=== PATIENT | female | born 1980 | race Caucasian/White ===

== ENCOUNTER 2017-10-26 18:47 | Emergency (ER) | payer OTHER ==
[2017-10-26 20:07] LABS: Protime INR 1.04
[2017-10-26 20:08] LABS: Absolute Lymphocytes (CBC) 2.4 K/uL (0.7-4.9); Absolute Monocytes 0.6 K/uL (0.1-1.3); Absolute Neutrophil 5.2 K/uL (1.8-8.0); Basophils % 0.7 % (0-1.3); Eosinophils % 7.5 % (0-4.4); Hematocrit 40.6 % (36.0-45.0); Lymphocytes % 26.9 % (15.3-44.8); MCH 30.8 pg (27.0-35.0); MCV 90.8 fL (80-100); MPV 7.9 fL (7.6-11.3); Monocytes % 6.6 % (3.3-12.3); RBC Red Blood Cell Count 4.47 M/uL (3.86-4.86)
[2017-10-26 20:09] LABS: Bicarbonate 29 mEq/L (21-31); Glucose Level 137 mg/dL (65-120); Potassium 3.4 mEq/L (3.6-5.0); Sodium Level 139 mEq/L (135-145)
[2017-10-26 20:15] LABS: ALT/SGPT 13 IU/L (10-60); AST/SGOT 21 IU/L (10-42); Albumin 4.4 g/dL (3.2-5.5); Alkaline Phosphatase 80 IU/L (42-121); BUN Blood Urea Nitrogen 7 mg/dL (6-20); Bilirubin Direct < 0.1 mg/dL (0-0.2); Bilirubin Total 0.6 mg/dL (0.3-1.2); Glomerular Filtration Rate > 90 mL/min (=/>90); Protein, Total 7.5 g/dL (6.0-8.3)
[2017-10-26 20:18] LABS: Alcohol Serum/Plasma < 10 mg/dl; Salicylates Level < 4.0 mg/dl (<30)
[2017-10-26 20:23] LABS: Barbiturates NEGATIVE; Benzodiazepines POSITIVE; Cocaine NEGATIVE; Opiates NEGATIVE; Phencyclidine NEGATIVE; THC Cannibis NEGATIVE
[2017-10-26 20:30] LABS: METHAMPHETAM POSITIVE
[2017-10-26 20:36] LABS: Urine Blood NEGATIVE (NEG); Urine Glucose NEGATIVE (NEG); Urine Protein NEGATIVE (NEG); Urine pH 5.5 (5.0-7.0)
[2017-10-26] MEDS ORDERED: POTASSIUM 25 MEQ EFFERV TAB ONE (21:17)
--- NOTE | 2017-10-27 02:17 | EDPHYS ---
Physician Documentation [facility] Name: Lorene Singer Age: 37 yrs Sex: Female : 1980 Arrival Date: 10/26/2017 Time: 18:51 Bed 17 Private MD: ED Physician Alex Peralta HPI: 10/26 19:30 This 37 yrs old Female presents to ER via Ambulatory with complaints of Psych cp Problem, Anxiety. 19:30 The patient presents to the emergency department with psychosis, has experienced cp auditory hallucinations, patient reports she is hearing "whispers" that pinch her and then ask her if she can feel the pinches. Whispers also ask patient if she is ready to , a history of substance abuse, Type: methamphetamines, last use was 4 days ago. 19:30 Onset: The symptoms/episode began/occurred at an unknown time. Past psychiatric cp history: the patient's last psychiatric treatment was last week, Mother reports patient was hospitalized at [facility] for 1 day prior to checking herself out of hospital. Mother reports patient was prescribed Effexor medication. YOLK SPRAY DRIER: 22:35 LMP N/A - wh Historical: - Allergies: 19:11 Morphine; ak1 - Home Meds: 19:11 None [Active]; ak1 - PMHx: 19:11 Anxiety; ADD/ADHD; ak1 - PSHx: 19:11 None; ak1 - Immunization history:: Adult Immunizations unknown. - Social history:: Smoking status: Patient uses tobacco products, smokes two packs cigarettes per day. ROS: 19:35 Constitutional: Negative for body aches, chills, fever, poor PO intake. cp 19:35 Eyes: Negative for injury, pain, redness, and discharge. cp 19:35 ENT: Negative for drainage from ear(s), ear pain, sore throat, difficulty swallowing, difficulty handling secretions. 19:35 Cardiovascular: Negative for chest pain, edema, palpitations. 19:35 Respiratory: Negative for cough, shortness of breath, wheezing. 19:35 Abdomen/GI: Negative for abdominal pain, nausea, vomiting, and diarrhea, constipation. 19:35 : Negative for urinary symptoms. 19:35 Skin: Negative for cellulitis, rash. 19:35 Neuro: Negative for headache, seizure activity, syncope, near syncope, weakness. 19:35 Psych: Positive for auditory hallucinations. 19:35 All other systems are negative. Exam: 19:42 Constitutional: The patient appears in no acute distress, alert, awake, cp non-diaphoretic, non-toxic, well developed, well nourished. 19:42 Head/Face: Normocephalic, atraumatic. Eyes: Pupils equal round and reactive to light, cp extra-ocular motions intact. Lids and lashes normal. Conjunctiva and sclera are non-icteric and not injected. Cornea within normal limits. Periorbital areas with no swelling, redness, or edema. ENT: Nares patent. No nasal discharge, no septal abnormalities noted. Tympanic membranes are normal and external auditory canals are clear. Oropharynx with no redness, swelling, or masses, exudates, or evidence of obstruction, uvula midline. Mucous membranes moist. Neck: Trachea midline, no thyromegaly or masses palpated, and no cervical lymphadenopathy. Supple, full range of motion without nuchal rigidity, or vertebral point tenderness. No Meningismus. Chest/axilla: Normal chest wall appearance and motion. Nontender with no deformity. No lesions are appreciated. 19:42 Cardiovascular: Rate: tachycardic, Rhythm: regular. 19:42 Respiratory: the patient does not display signs of respiratory distress, Respirations: normal, no use of accessory muscles, no retractions, no splinting, no tachypnea, labored breathing, is not present, Breath sounds: are clear throughout, no decreased breath sounds, no stridor, no wheezing. 19:42 Abdomen/GI: Inspection: abdomen appears normal, Bowel sounds: active, all quadrants, Palpation: abdomen is soft and non-tender, in all quadrants, rebound tenderness, is not appreciated, voluntary guarding, is not appreciated, involuntary guarding, is not appreciated. 19:42 Back: pain, is absent, ROM is normal, CVA tenderness, is absent. 19:42 Skin: cellulitis, is not appreciated, no rash present. 19:42 Neuro: Orientation: to person, place \\T\\ time. Mentation: lucid, able to follow commands, Cerebellar function: is grossly normal, Motor: moves all fours, strength is normal, Sensation: no obvious gross deficits. 19:50 ECG was reviewed by the Attending Physician. cp Vital Signs: 19:11 BP 165 / 89; Pulse 111; Resp 22; Temp 98.4(TE); Pulse Ox 100% on R/A; Weight 77.11 kg ak1 (R); Height 5 ft. 4 in. (162.56 cm); Pain 0/10; 20:29 BP 116 / 61; Pulse 86; Pulse Ox 100% on R/A; jb5 21:30 BP 105 / 46; Pulse 87; Resp 18; Pulse Ox 100% on R/A; wh 22:37 BP 113 / 54; Pulse 86; Resp 18; Pulse Ox 98% on R/A; wh 23:55 BP 99 / 49; Pulse 84; Resp 17; Pulse Ox 97% on R/A; wh 10/27 00:58 BP 100 / 56; Pulse 82; Resp 18; Pulse Ox 100% on R/A; wh 02:15 BP 102 / 50; Pulse 79; Resp 18; Pulse Ox 97% on R/A; wh 03:33 BP 100 / 51; Pulse 77; Resp 18; Pulse Ox 98% on R/A; wh 04:20 BP 103 / 51; Pulse 81; Resp 18; Pulse Ox 98% on R/A; wh 05:15 BP 100 / 53; Pulse 87; Resp 18; Pulse Ox 100% on R/A; wh 07:03 BP 92 / 56; wh 07:30 BP 110 / 76; Pulse 67; Resp 20; Pulse Ox 99% on R/A; em 09:50 BP 131 / 69; Pulse 77; Resp 18; Pulse Ox 99% on R/A; Pain 0/10; em 03 19:11 Body Mass Index 29.18 (77.11 kg, 162.56 cm) ak1 MDM: 10/26 19:11 Patient medically screened. cp 20:00 Differential diagnosis: drug withdrawal. acute psychotic break, psychosis secondary to cp non-compliance, suicidal ideation. 20:35 Data reviewed: vital signs, nurses notes, lab test result(s), EKG. cp 10/27 09:23 ED course: Dr. Hodgson consulted and accepted patient at [facility] . jr8 10/26 19:28 Order name: Acetaminophen cp 10/26 19:28 Order name: Basic Metabolic Panel cp 10/26 19:28 Order name: CBC with Diff cp 10/26 19:28 Order name: ETOH Level cp 10/26 19:28 Order name: Hepatic Function cp 10/26 19:28 Order name: PT-INR cp 10/26 19:28 Order name: Ptt, Activated cp 10/26 19:28 Order name: Salicylate cp 10/26 19:28 Order name: Urine Drug Screen cp 10/26 20:09 Order name: Basic Metabolic Panel; Complete Time: 20:30 EDMS 10/26 20:30 Interpretation: Normal except: K 3.4; GLUC 137. cp 10/26 20:09 Order name: Protime (+INR); Complete Time: 20:30 EDMS 10/26 20:09 Order name: PTT, Activated Partial Thromb; Complete Time: 20:30 EDMS 10/26 20:19 Order name: Liver (Hepatic) Function; Complete Time: 20:30 EDMS 10/26 20:19 Order name: Acetaminophen Level; Complete Time: 20:30 EDMS 10/26 19:28 Order name: Urine Test (obtain specimen); Complete Time: 20:57 cp 10/26 19:28 Order name: EKG; Complete Time: 19:29 cp 10/26 19:28 Order name: EKG - Nurse/Tech; Complete Time: 19:46 cp 10/26 19:28 Order name: IV Saline Lock; Complete Time: 19:46 cp 10/26 19:28 Order name: Labs collected and sent; Complete Time: 19:46 cp 10/26 20:19 Order name: Alcohol Serum/Plasma; Complete Time: 20:30 EDMS 10/26 20:19 Order name: Salicylates Level; Complete Time: 20:30 EDMS 10/26 20:25 Order name: CBC with Automated Diff; Complete Time: 20:30 EDMS 10/26 20:30 Interpretation: Normal except: EOSINOPHIL % 7.5; EOSA 0.7. cp 10/26 20:30 Order name: Urine Dipstick--Ancillary (enter results) rg2 10/26 20:30 Order name: Urine --Ancillary (enter results) rg2 10/26 20:31 Order name: Urine Drug Screen; Complete Time: 20:31 EDMS 10/26 20:37 Order name: Urine --Ancillary; Complete Time: 04:01 EDMS 10/26 20:37 Order name: Urine Dipstick-Ancillary; Complete Time: 04:01 EDMS 10/27 07:07 Order name: Diet Regular; Complete Time: 07:08 10/26 19:28 Order name: Urine Dipstick-Ancillary (obtain specimen); Complete Time: 20:56 cp EC/15 19:50 Rate is 105 beats/min. Rhythm is regular. NV interval is normal. QRS interval is cp normal. QT interval is normal. No ST changes noted. Interpreted by me. Reviewed by me. Administered Medications: 21:00 Drug: Potassium Effervescent Tablet 25 mEq Route: PO; 21:49 Follow up: Response: No adverse reaction 10/27 00:57 Follow up: Response: No adverse reaction 10:20 Drug: XANax Tablet 0.5 mg Route: PO; 10:36 Follow up: Response: No adverse reaction Disposition: 10/27/17 02:16 Transfer ordered to Psych Facility. Diagnosis is Hallucinations, unspecified. - Reason for transfer: Higher level of care. - Accepting physician is psych facility. - Condition is Stable. - Problem is new. - Symptoms are unchanged. Addendum: 11/07/2017 11:25 Co-signature as Attending Physician, Alex Peralta MD available for consultation at p s1 all times. . Signatures: Dispatcher [employer] EDConstantino Chambers, PATTERN MAKER PATTERN MAKER Padmini Ruffin RN RN ss Roszak, Josh, PA PA jr8 Krenek, Amber, RN RN ak1 Phong Boston PA PA cp Habalo, Winsy wh Singer, Phillip, MD MD ps1 Joaquin, Henry RN Corrections: (The following items were deleted from the chart) 10/26 20:30 20:30 Normal except: EOSINOPHIL % 7.5. cp cp
--- NOTE | 2017-10-27 02:17 | ER ---
Nurse's Notes [facility] Name: Lorene Singer Age: 37 yrs Sex: Female : 1980 Arrival Date: 10/26/2017 Time: 18:51 Bed 17 Private MD: Diagnosis: Hallucinations, unspecified Presentation: 10/26 19:08 Presenting complaint: Patient states: "someone put black magic on me" pt stated she is ak1 hearing voices. pt stated the voices have been around X2 months DOME[employer]. pt taking Effexor and Risperdal. pt is out of effexor for 2 days and threw out the risperdal. Transition of care: patient was not received from another setting of care. Onset of symptoms is unknown. Care prior to arrival: None. 19:08 Method Of Arrival: Ambulatory ak1 19:08 Acuity: JAMSHID 2 ak1 Triage Assessment: 19:11 General: Appears in no apparent distress. pt denies SI or homicidal ideations. . ak1 Behavior is anxious, crying. MANAGER GAMING: 22:35 LMP N/A - wh Historical: - Allergies: 19:11 Morphine; ak1 - Home Meds: 19:11 None [Active]; ak1 - PMHx: 19:11 Anxiety; ADD/ADHD; ak1 - PSHx: 19:11 None; ak1 - Immunization history:: Adult Immunizations unknown. - Social history:: Smoking status: Patient uses tobacco products, smokes two packs cigarettes per day. Screenin:48 Abuse screen: Denies threats or abuse. Denies injuries from another. Nutritional wh screening: No deficits noted. Tuberculosis screening: No symptoms or risk factors identified. Fall Risk None identified. Assessment: 20:10 General: Appears in no apparent distress. Behavior is cooperative, anxious. Pain: wh Denies pain. Neuro: Level of Consciousness is awake, alert, obeys commands, Oriented to person, place, time, Reports auditory hallucinations. Cardiovascular: Denies chest pain, Heart tones S1 S2 Capillary refill < 3 seconds. Respiratory: Airway is patent Respiratory effort is even, unlabored, Respiratory pattern is regular, symmetrical, Breath sounds are clear bilaterally. GI: Abdomen is flat, non-distended, Abd is soft and non tender X 4 quads. : No signs and/or symptoms were reported regarding the genitourinary system. EENT: No signs and/or symptoms were reported regarding the EENT system. Derm: Skin is intact, is healthy with good turgor, Skin is pink, warm \\T\\ dry. normal. Musculoskeletal: Range of motion: intact in all extremities. 21:19 Reassessment: Patient appears in no apparent distress at this time. Patient and/or wh family updated on plan of care and expected duration. Pain level reassessed. Patient is alert, oriented x 3, equal unlabored respirations, skin warm/dry/pink. MOther at bedside. 22:32 Reassessment: Patient appears in no apparent distress at this time. Patient and/or wh family updated on plan of care and expected duration. Pain level reassessed. Patient is alert, oriented x 3, equal unlabored respirations, skin warm/dry/pink. Mother at bedside. 23:55 Reassessment: Patient appears in no apparent distress at this time. Patient and/or wh family updated on plan of care and expected duration. Pain level reassessed. Patient is alert, oriented x 3, equal unlabored respirations, skin warm/dry/pink. MOther at bedside. 10/27 00:58 Reassessment: Patient appears in no apparent distress at this time. Patient and/or wh family updated on plan of care and expected duration. Pain level reassessed. Patient is alert, oriented x 3, equal unlabored respirations, skin warm/dry/pink. 02:13 Reassessment: Patient appears in no apparent distress at this time. Patient and/or wh family updated on plan of care and expected duration. Pain level reassessed. Patient is alert, oriented x 3, equal unlabored respirations, skin warm/dry/pink. MOther at bedside. 03:30 Reassessment: Patient appears in no apparent distress at this time. Patient and/or wh family updated on plan of care and expected duration. Pain level reassessed. Patient is alert, oriented x 3, equal unlabored respirations, skin warm/dry/pink. mother in room. 04:18 Reassessment: Patient appears in no apparent distress at this time. Patient and/or wh family updated on plan of care and expected duration. Pain level reassessed. Patient is alert, oriented x 3, equal unlabored respirations, skin warm/dry/pink. 05:16 Reassessment: Patient appears in no apparent distress at this time. Patient and/or wh family updated on plan of care and expected duration. Pain level reassessed. Patient is alert, oriented x 3, equal unlabored respirations, skin warm/dry/pink. 06:57 Reassessment: Patient appears in no apparent distress at this time. Patient and/or wh family updated on plan of care and expected duration. Pain level reassessed. Patient is alert, oriented x 3, equal unlabored respirations, skin warm/dry/pink. 07:28 Reassessment: Psych facility RN Samanta called, RN gave report, left a number for MD to hj report, receiving Dr. Rema YOON, [phone]. 09:40 Reassessment: pt became upset and wanted IV out because it hurts. IV D/C, bleeding em controlled. States, "No one has done anything for me, I want to talk to the preacher so they can get this black magic off me. I also want to smoke." Pt taken outside to smoke with chemical laboratory technician. Pt cooperative and calm. EMS en route to filler picker pt and take to a psych facility. URBANO Dozier notified of upset pt, does not recommend to medicate pt prior to arriving to another facility. [facility] notified of situation and will come see pt after he is done seeing another pt in ICU. 10:10 Reassessment: Patient appears in no apparent distress at this time. Patient and/or em family updated on plan of care and expected duration. Pain level reassessed. Patient is alert, oriented x 3, equal unlabored respirations, skin warm/dry/pink. [facility] at bedside. Psych: 10/26 20:35 Subjective: Patient's mood is sad, angry, Hallucinations are auditory. Objective: wh Patient is cooperative, Speech is normal, Affect is appropriate. Interventions: Removed personal items and placed in bag. Urine collected and sent for urine drug test. Belonging list filled out. Suicide Risk Assessment: Sad Person Scale: Sex of patient: Female: Score 0 points. Age of patient: Score 0 point if patient falls outside of specified age parameters. Substance Abuse: Score 1 point if patient abuses alcohol or drugs. Social Support: Score 0 if social support is present/available. Safety Checks: Personal items have been removed. Door is open. Visitors are present. Patient uses methamphetamines Patient uses tobacco. Commitment: Patient will be a voluntary commitment. 21:00 Safety Checks: Personal items have been removed. Door is open. Visitors are present. 21:15 Safety Checks: Personal items have been removed. Door is open. Visitors are present. 21:30 Safety Checks: Personal items have been removed. Door is open. Visitors are present. 21:45 Safety Checks: Personal items have been removed. Door is open. Visitors are present. 22:00 Safety Checks: Personal items have been removed. Door is open. No visitors are present at this time. 22:15 Safety Checks: Personal items have been removed. Door is open. Visitors are present. 22:30 Safety Checks: Personal items have been removed. Door is open. Visitors are present. 22:45 Safety Checks: Personal items have been removed. Door is open. Visitors are present. 23:00 Safety Checks: Personal items have been removed. Door is open. Visitors are present. 23:15 Safety Checks: Personal items have been removed. Door is open. Visitors are present. 23:30 Safety Checks: Personal items have been removed. Door is open. Visitors are present. 23:45 Safety Checks: Personal items have been removed. Door is open. Visitors are present. 10/27 00:00 Safety Checks: Personal items have been removed. Door is open. Visitors are present. 00:15 Safety Checks: Personal items have been removed. Door is open. Visitors are present. 00:30 Safety Checks: Personal items have been removed. Door is open. Visitors are present. 00:45 Safety Checks: Personal items have been removed. Door is open. Visitors are present. 01:00 Safety Checks: Personal items have been removed. Door is open. Visitors are present. 01:15 Safety Checks: Personal items have been removed. Door is open. Visitors are present. 01:30 Safety Checks: Personal items have been removed. Door is open. Visitors are present. 01:45 Safety Checks: Personal items have been removed. Door is open. Visitors are present. 02:00 Safety Checks: Personal items have been removed. Door is open. Visitors are present. 02:14 Safety Checks: Personal items have been removed. Door is open. Visitors are present. wh 02:30 Safety Checks: Door is open. No visitors are present at this time. wh 02:45 Safety Checks: Personal items have been removed. Door is open. No visitors are present wh at this time. 03:00 Safety Checks: Personal items have been removed. Door is open. No visitors are present wh at this time. 03:15 Safety Checks: Personal items have been removed. Door is open. No visitors are present wh at this time. 03:30 Safety Checks: Personal items have been removed. Door is open. No visitors are present wh at this time. 03:45 Safety Checks: Personal items have been removed. Door is open. Visitors are present. wh 04:00 Safety Checks: Personal items have been removed. Door is open. Visitors are present. wh 04:15 Safety Checks: Personal items have been removed. Door is open. Visitors are present. wh 04:30 Safety Checks: Personal items have been removed. Door is open. No visitors are present wh at this time. 04:45 Safety Checks: Personal items have been removed. Door is open. No visitors are present wh at this time. 05:00 Safety Checks: Personal items have been removed. Door is open. No visitors are present wh at this time. 05:15 Safety Checks: Personal items have been removed. Door is open. No visitors are present wh at this time. 05:30 Safety Checks: Personal items have been removed. Door is open. No visitors are present wh at this time. 05:45 Safety Checks: Personal items have been removed. Door is open. No visitors are present wh at this time. 06:00 Safety Checks: Personal items have been removed. Door is open. No visitors are present wh at this time. 06:15 Safety Checks: Personal items have been removed. Door is open. No visitors are present wh at this time. 06:30 Safety Checks: Personal items have been removed. Door is open. No visitors are present wh at this time. 06:45 Safety Checks: Personal items have been removed. Door is closed to patient's room. wh Visitors are present. 07:00 Safety Checks: Personal items have been removed. Door is open. No visitors are present wh at this time. 07:15 Safety Checks: Personal items have been removed. Door is open. No visitors are present at this time. 07:30 Safety Checks: Personal items have been removed. Door is open. No visitors are present em at this time. 07:45 Safety Checks: Personal items have been removed. Door is open. No visitors are present em at this time. 08:00 Safety Checks: Personal items have been removed. Door is open. No visitors are present em at this time. 08:15 Safety Checks: Personal items have been removed. Door is open. No visitors are present em at this time. 08:30 Safety Checks: Personal items have been removed. Door is open. No visitors are present em at this time. 08:45 Safety Checks: Personal items have been removed. Door is open. Visitors are present. em 09:00 Safety Checks: Personal items have been removed. Door is open. Visitors are present. em 09:15 Safety Checks: Personal items have been removed. Door is open. Visitors are present. em Vital Signs: 10/26 19:11 BP 165 / 89; Pulse 111; Resp 22; Temp 98.4(TE); Pulse Ox 100% on R/A; Weight 77.11 kg ak1 (R); Height 5 ft. 4 in. (162.56 cm); Pain 0/10; 20:29 BP 116 / 61; Pulse 86; Pulse Ox 100% on R/A; jb5 21:30 BP 105 / 46; Pulse 87; Resp 18; Pulse Ox 100% on R/A; wh 22:37 BP 113 / 54; Pulse 86; Resp 18; Pulse Ox 98% on R/A; wh 23:55 BP 99 / 49; Pulse 84; Resp 17; Pulse Ox 97% on R/A; wh 03/16 00:58 BP 100 / 56; Pulse 82; Resp 18; Pulse Ox 100% on R/A; wh 02:15 BP 102 / 50; Pulse 79; Resp 18; Pulse Ox 97% on R/A; wh 03:33 BP 100 / 51; Pulse 77; Resp 18; Pulse Ox 98% on R/A; wh 04:20 BP 103 / 51; Pulse 81; Resp 18; Pulse Ox 98% on R/A; wh 05:15 BP 100 / 53; Pulse 87; Resp 18; Pulse Ox 100% on R/A; wh 07:03 BP 92 / 56; wh 07:30 BP 110 / 76; Pulse 67; Resp 20; Pulse Ox 99% on R/A; em 09:50 BP 131 / 69; Pulse 77; Resp 18; Pulse Ox 99% on R/A; Pain 0/10; em 10/26 19:11 Body Mass Index 29.18 (77.11 kg, 162.56 cm) ak1 ED Course: 10/26 18:51 Patient arrived in ED. rg4 19:08 Yung Leija is Primary Nurse. 19:10 Triage completed. ak1 19:10 Phong Boston PA is PHCP. cp 19:10 Alex Peralta MD is Attending Physician. cp 19:11 Arm band placed on Patient placed in an exam room, on a stretcher, Patient notified of ak1 wait time. 19:36 Inserted saline lock: 20 gauge in right antecubital area, using aseptic technique. jb5 Blood collected. 20:45 Patient has correct armband on for positive identification. Bed in low position. Call light in reach. Side rails up X 1. Pulse ox on. NIBP on. 10/27 10:00 No provider procedures requiring assistance completed. IV discontinued, intact, em bleeding controlled, No redness/swelling at site. Pressure dressing applied. Administered Medications: 10/26 21:00 Drug: Potassium Effervescent Tablet 25 mEq Route: PO; 21:49 Follow up: Response: No adverse reaction 10/27 00:57 Follow up: Response: No adverse reaction 10:20 Drug: XANax Tablet 0.5 mg Route: PO; em 10:36 Follow up: Response: No adverse reaction Outcome: 02:16 ER care complete, transfer ordered by MD. cp 10:49 Transferred by ground EMS to other acute care facility, Transfer form completed. em 10:49 Condition: good 10:49 Instructed on the need for transfer, Demonstrated understanding of instructions. 10:53 Patient left the ED. em Signatures: Constantino Back LVN ELECTROCARDIOGRAPHIC TECHNICIAN em Nat Davila RN RN ak1 Dick Gastelum RN RN hj Phong Boston PA PA cp Garcia, Rubi rg4 Faye Cline jb5 Yung Leija Corrections: (The following items were deleted from the chart) 05:15 04:20 BP 69 / 61; Pulse 81bpm; Resp 18bpm; Pulse Ox 98% RA; wh wh 09:56 09:40 Reassessment: pt became upset and wanted IV out because it hurts. States, "No one em has done anything for me, I want to talk to the preacher so they can get this black magic off me. I also want to smoke." Pt taken outside to smoke with chemical laboratory technician. Pt cooperative and calm. EMS en route to filler picker pt and take to a psych facility. [facility] notified of upset pt, does not recommend to medicate pt prior to arriving to another facility. [facility] notified of situation and will come see pt after he is done seeing another pt in ICU. em
--- NOTE | 2017-10-27 07:39 | EKG ---
Test Date: 2017-10-26 Test Time: 19:40:59 Senior Accountant Analyst: FATOU MEASUREMENT RESULTS: Intervals: Rate: 105 IN: 148 QRSD: 80 QT: 348 QTc: 459 [place]: P: 23 IN: 148 QRS: 23 T: 32 INTERPRETIVE STATEMENTS: Sinus tachycardia Septal infarct, age undetermined Abnormal ECG Compared to ECG 05/22/2016 14:16:42 Myocardial infarct finding now present Sinus rhythm no longer present Sinus arrhythmia no longer present Electronically Signed On 10-27-17 07:39:13 CDT by Fernando Wong
[2017-10-27] MEDS ORDERED: ALPRAZOLAM 0.5 MG TABLET ONE (10:41)
[2017-10-27 11:16] VITALS: TEMP 98.4
[2017-10-27 11:29] VITALS: O2SAT 99
[2017-10-27 11:30] VITALS: BP 131/69
== END 2017-10-27 10:53 ==
LOC: ER 18:47
DX: R44.0 Auditory hallucinations (principal); F41.9 Anxiety disorder, unspecified; F90.9 Attention-deficit hyperactivity disorder, unspecified type; F17.210 Nicotine dependence, cigarettes, uncomplicated; Z88.5 Allergy status to narcotic agent
CPT/HCPCS: 36415; 80048; 80076; 80307; 80320; 80329; 81003; 81025; 85025; 85610; 85730; 93005; 99285

== ENCOUNTER 2017-12-19 10:08 | Emergency (ER) | payer OTHER ==
--- OUTSIDE RECORDS SUMMARY | 2017-12-19 10:10 | XMS REPORT ---
:1980 Author Organization [facility] Address [address] [place] [address] Dr. Moore [address] [place] [id number] Care Team Providers Name Role Phone UNKNOWN, REFFERING Primary Care Provider Unavailable DANIEL HUMPHREYS M.D. Unavailable Unavailable Problems This patient has no known problems. Allergies, Adverse Reactions, Alerts This patient has no known allergies or adverse reactions. Medications This patient has no known medications. Results Test Description Test Time Test Comments Text Results Atomic Results Result Comments RPR, Qual 2017-10-11 14:45:00 Test Item Value Reference Range Comments RPR (test code=RPR) Non-Reactive Non-Reactive Thyroid Stimulating Hormone (TSH)2017-10-11 07:29:00 Test Item Value Reference Range Comments TSH (test code=TSH) 2.42 mIU/mL 0.270-4.200 BHCG, Serum, [id number] 07:29:00 Test Item Value Reference Range Comments B hCG, Quant (test <1 mIU/mL Weeks of Gestation Ranges code=BHCGQT) (mIU/mL)3 weeks 5.40 - 72.04 weeks 10.2 - 7085 weeks 217 - 49705 weeks 152 - 766604 weeks 4059 - 0772090 weeks 48517 - 2548304 weeks 84963 - 29091680 weeks 53022 - 75063599 weeks 48738 - 68102317 weeks 51398 - 5429619 weeks 85751 - 6118373 weeks 6204 - 9198249 weeks 40 - 8901114 weeks 0081 - 89461 Lipid [id number] 07:19:00 Test Item Value Reference Range Comments Cholesterol (test 132 mg/dL 0-200 code=CHOL) Triglycerides (test 122 mg/dL 9-200 code=TRIG) HDL (test code=HDL) 21 mg/dL 50-60 Chol/HDL (test 6.3 Ratio 0.0-4.4 code=CHOLPHDL) LDL, Calculated (test 87 0-130 (NOTE)RISK OF HEART code=LDLC) DISEASEPublished by [place] Heart AssociationAnalyte Optimal Boderline Increased RiskCHOL <200 200-239 >240TRIG <150 150-199 >200HDL Male: >60 <40HDL Female: >60 <50LDL <100 130-159 >160LDL NEAR OPTIMAL IS 100-129 VLDL (test code=VLDL) 24 mg/dL 5-40 LDL/HDL (test code=LDLPHDL) 4 [id number] 04:24:00 Test Item Value Reference Range Comments Amphetamine (test code=AMPH) Negative Negative For diagnostic purposes only, positive results should always be assessedin conjunctionwith the patient's medical history,clinical examination and otherfindings.To fulfill legal requirements, a more specific alternate chemical methodmust be used inorder to obtain a Confirmed analytical result. GC/MS is the preferred confirmatory method. Barbiturates (test code=SUPA) Negative Negative Benzodiazepine (test POSITIVE Negative code=BRET) Cocaine (test code=COCA) Negative Negative Methadone (test code=MTHD) Negative Negative Opiates (test code=OPIA) Negative Negative PCP (test code=PCP) Negative Negative Propoxyphene (test Negative Negative code=PROPOX) THC (test code=THC) POSITIVE Negative Urinalysis [id number] 03:47:00 Test Item Value Reference Range Comments Color (test code=COLOR) [place] Yellow,Straw,Pl yellow The value [place] originally released by [email or web address] on 10/11/2017 03:42 waschanged to [place] by [email or web address] on 10/11/2017 03:47 Clarity (test code=CLAR) Sl Cloudy Clear The value Clear originally released by [email or web address] on 10/11/2017 03:42 waschanged to [place] Cloudy by [email or web address] on 10/11/2017 03:47 Specific [place] (test 1.006 1.001-1.035 code=SPGR) pH (test code=PH) 6.5 5.0-9.0 Ketone (test code=KET) Negative mg/dL Negative Glucose (test Negative mg/dL Negative code=GLUCUR) Protein (test code=PROT) Negative mg/dL Negative Bilirubin (test Negative mg/dL Negative code=BILI) Occult Blood (test Large Negative code=UDOB) Urobilinogen (test 0.2 mg/dL 0.2-1.0 code=UROB) Nitrite (test code=NIT) Negative Negative Leuk Esterase (test Small Negative code=LEUK) Micros Exam (test Indicated code=MEXAM) Epithelial Cells (test None /LPF 0-30 code=EPI) WBC, Urine (test 0-2 /HPF 0-5 code=UWBC) RBC, Urine (test 51-100 /HPF 0-5 code=URBC) Bacteria (test code=BACT) Few /HPF Comprehensive Metabolic [id number] 01:00:00 Test Item Value Reference Range Comments Sodium (test code=NA) 139 mmol/L 135-145 Potassium (test code=K) 3.4 mmol/L 3.5-5.1 Chloride (test code=CL) 101 mmol/L 98-105 Carbon Dioxide (test 28 mmol/L 22-29 code=CO2) Glucose (test code=GLU) 102 mg/dL 70-115 Blood Urea Nitrogen 6 mg/dL 6-20 (test code=BUN) Creatinine (test 0.7 mg/dL 0.5-0.9 code=CREAT) Calcium (test code=CA) 9.4 mg/dL 8.3-10.5 Prot Total (test 6.6 g/dL 6.4-8.3 code=TP) Albumin (test code=ALB) 4.3 g/dL 3.5-5.2 A/G Ratio (test 1.9 Ratio code=AGRATIO) Globulin (test 2.3 2.9-3.1 code=GLOB) Bili Total (test <0.1 mg/dL 0.1-0.9 code=TBIL) Alk Phos (test 84 U/L 35-104 code=APHOS) AST (test code=AST) 16 U/L 1-32 ALT (test code=ALT) 11 U/L 1-33 BUN/Creatinine Ratio 8.6 (test code=BCRATIO) Anion Gap (test 10 mmol/L 7-16 code=AGAP) Estimated GFR (test >60 mL/min/1.73m2 eGFR (estimated Glomerular code=GFR) Filtration Rate) is an estimated value,calculated from the patient's serum creatinine using the MDRD equation.It is NOT the patient's actual GFR. The eGFR provides a more clinicallyuseful measure of kidney disease than serum creatinine alone.This calculation takes sex and race into account, if the informationis provided. If the race is not provided, and the patient isAfrican-Z[place]ian, multiply by 1.212. If sex is not provided, and thepatient is female, multiply by 0.742. Results for patients <18 years ofage have not been validated by the MDRD study and should be interpretedwith caution.eGFR Result Interpretation:eGFR > or=60 is in the Normal RangeeGFR < 60 may mean kidney diseaseeGFR < 15 may mean kidney failureRanges recommended by the National Kidney Foundation,http://nkdep.nih .gov Alcohol/Ethanol, [id number] 01:00:00 Test Item Value Reference Range Comments Alcohol, Ethyl (test <0.01 g/dL 0.00-0.01 Intoxicated 0.080 g/dL or code=ETOH) more CBC with [id number] 00:45:00 Test Item Value Reference Range Comments WBC (test code=WBC) 12.0 K/cumm 4.4-10.5 RBC (test code=RBC) 4.09 M/cumm 3.75-5.20 Hemoglobin (test code=HGB) 12.4 gm/dL 12.2-14.8 Hematocrit (test code=HCT) 38.3 % 36.5-44.4 MCV (test code=MCV) 93.8 fL 80-100 MCH (test code=MCH) 30.4 pg 27.0-32.5 MCHC (test code=MCHC) 32.5 g/dL 32.0-37.5 RDW (test code=RDW) 13.4 % 11.5-14.5 Platelet Count (test code=PLTCT) 393 K/cumm 140-440 MPV (test code=MPV) 9.3 fL Diff Method (test code=DIFFM) Auto Neutrophil (test code=NEUT) 53.3 % 36-70 Lymphocyte (test code=LYMPH) 31.8 % 12-44 Monocyte (test code=MONO) 4.1 % 0-11 Eosinophil (test code=EOS) 10.3 % 0-7 Basophil (test code=BASO) 0.5 % 0-2 Neutro Abs (test code=ANEUT) 6.4 K/cumm 1.6-7.4 Lymph Abs (test code=ALYMPH) 3.8 K/cumm 0.5-4.6 [place] Abs (test code=AMONO) 0.5 K/cumm 0.0-1.2 Eos Abs (test code=AEOS) 1.24 K/cumm 0.00-0.74 Baso Abs (test code=ABASO) 0.1 K/cumm 0.00-0.21
--- NOTE | 2017-12-19 10:57 | EDPHYS ---
Physician Documentation [facility] Name: Lorene Singer Age: 37 yrs Sex: Female : 1980 Arrival Date: 12/19/2017 Time: 10:10 Bed 5 Private MD: None, None ED Physician Henrry Whittington HPI: 12/19 10:50 This 37 yrs old Female presents to ER via Ambulatory with complaints of Psych gs Problem. 10:50 The patient presents to the emergency department with depression, paranoia, psychosis, gs has experienced auditory hallucinations. Onset: The symptoms/episode began/occurred 1 month(s) ago. Past psychiatric history: Prior diagnosis: bipolar disorder, depression. Associated signs and symptoms: Pertinent negatives: homicidal ideation, suicide ideation. Severity of symptoms: At their worst the symptoms were moderate in the emergency department the symptoms are unchanged. The patient has experienced similar episodes in the past, chronically. The patient has been recently seen by a physician: psych facility. 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 - Social history:: The patient lives at home, Smoking status: Patient uses tobacco products, smokes one pack cigarettes per day. ROS: 10:50 All other systems are negative. gs Exam: 10:50 Head/Face: Normocephalic, atraumatic. Eyes: Pupils equal round and reactive to light, gs extra-ocular motions intact. Lids and lashes normal. Conjunctiva and sclera are non-icteric and not injected. Cornea within normal limits. Periorbital areas with no swelling, redness, or edema. ENT: Nares patent. No nasal discharge, no septal abnormalities noted. Tympanic membranes are normal and external auditory canals are clear. Oropharynx with no redness, swelling, or masses, exudates, or evidence of obstruction, uvula midline. Mucous membranes moist. Neck: Trachea midline, no thyromegaly or masses palpated, and no cervical lymphadenopathy. Supple, full range of motion without nuchal rigidity, or vertebral point tenderness. No Meningismus. Chest/axilla: Normal chest wall appearance and motion. Nontender with no deformity. No lesions are appreciated. Cardiovascular: Regular rate and rhythm with a normal S1 and S2. No gallops, murmurs, or rubs. Normal PMI, no JVD. No pulse deficits. Respiratory: Lungs have equal breath sounds bilaterally, clear to auscultation and percussion. No rales, rhonchi or wheezes noted. No increased work of breathing, no retractions or nasal flaring. Abdomen/GI: Soft, non-tender, with normal bowel sounds. No distension or tympany. No guarding or rebound. No evidence of tenderness throughout. Back: No spinal tenderness. No costovertebral tenderness. Full range of motion. MS/ Extremity: Pulses equal, no cyanosis. Neurovascular intact. Full, normal range of motion. Neuro: Awake and alert, GCS 15, oriented to person, place, time, and situation. Cranial nerves II-XII grossly intact. Motor strength 5/5 in all extremities. Sensory grossly intact. Cerebellar exam normal. Normal gait. 10:50 Constitutional: The patient appears alert, awake. 10:50 Psych: Behavior/mood is pleasant, Affect is calm, Oriented to person, place, time, Patient has no thoughts/intents to harm self or others. Judgement / Insight is impaired. Delusions/hallucinations are present and described as VOICES TELLING HER TO SAY HER DAUGHTER HAS LEUKEMIA. Vital Signs: 10:25 BP 124 / 79; Pulse 92; Resp 18; Temp 98.4(TE); Pulse Ox 100% on R/A; Weight 65.77 kg; Height 5 ft. 4 in. (162.56 cm); 10:25 Body Mass Index 24.89 (65.77 kg, 162.56 cm) MDM: 10:46 Patient medically screened. 10:50 Data reviewed: vital signs, nurses notes. Physician consultation: Estephania TRAN and will see patient in office, shortly. Administered Medications: No medications were administered Disposition: 12/19/17 10:56 Discharged to Home. Impression: Bipolar disorder, current episode depressed, mild. - Condition is Stable. - Discharge Instructions: Bipolar Disorder. - Prescriptions for Klonopin 1 mg Oral Tablet - take 1 tablet by ORAL route every 12 hours As needed; 10 tablet. - Medication Reconciliation Form, Thank You Letter, Antibiotic Education, Prescription Opioid Use form. - Follow up: Private Physician; When: Today. Signatures: Dick Gastelum RN RN Joleen Roque RN RN tw2 Henrry Whittington MD MD Corrections: (The following items were deleted from the chart) 11:04 10:56 12/19/2017 10:56 Discharged to Home. Impression: Bipolar disorder, current tw2 episode depressed, mild. Condition is Stable. Forms are Medication Reconciliation Form, Thank You Letter, Antibiotic Education, Prescription Opioid Use. Follow up: Private Physician; When: Today. gs 13:06 11:04 12/19/2017 10:56 Discharged to Home. Impression: Bipolar disorder, current episode depressed, mild. Condition is Stable. Discharge Instructions: Bipolar Disorder. Forms are Medication Reconciliation Form, Thank You Letter, Antibiotic Education, Prescription Opioid Use. Follow up: Private Physician; When: Today. tw2
--- NOTE | 2017-12-19 10:57 | ER ---
Nurse's Notes [facility] Name: Lorene Singer Age: 37 yrs Sex: Female : 1980 Arrival Date: 12/19/2017 Time: 10:10 Bed 5 Private MD: None, None Diagnosis: Bipolar disorder, current episode depressed, mild Presentation: 12/19 10:22 Presenting complaint: Patient states: 2 months ago, i started hearing voices and i was hj out of my medication for months and i coudnt get an appointment with my doctor; denies suicidal or homicidal tendencies;. Transition of care: patient was not received from another setting of care. Onset of symptoms was December 19, 2017. Initial Sepsis Screen: Does the patient meet any 2 criteria? No. Patient's initial sepsis screen is negative. Does the patient have a suspected source of infection? No. Patient's initial sepsis screen is negative. Care prior to arrival: None. 10:22 Method Of Arrival: Ambulatory 10:22 Acuity: JAMSHID 2 hj Triage Assessment: 10:24 General: Appears in no apparent distress. uncomfortable, Behavior is calm, cooperative, hj appropriate for age. Pain: Denies pain. 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 - Social history:: The patient lives at home, Smoking status: Patient uses tobacco products, smokes one pack cigarettes per day. Screenin:45 Abuse screen: Denies threats or abuse. Nutritional screening: No deficits noted. tw2 Tuberculosis screening: No symptoms or risk factors identified. Fall Risk None identified. Assessment: 10:45 General: Appears in no apparent distress. Behavior is cooperative. Pain: Denies pain. tw2 Neuro: Level of Consciousness is awake, alert, obeys commands, Oriented to person, place, time, situation. Cardiovascular: Denies chest pain, shortness of breath, Heart tones S1 S2 Capillary refill < 3 seconds. Respiratory: Airway is patent Respiratory effort is even, unlabored, Respiratory pattern is regular, symmetrical, Breath sounds are clear bilaterally. GI: No signs and/or symptoms were reported involving the gastrointestinal system. GI: Abdomen is flat, Bowel sounds present X 4 quads. : No signs and/or symptoms were reported regarding the genitourinary system. EENT: No signs and/or symptoms were reported regarding the EENT system. Derm: No signs and/or symptoms reported regarding the dermatologic system. Skin is intact, is healthy with good turgor, Skin temperature is warm. 11:03 Reassessment: Patient appears in no apparent distress at this time. No changes from tw2 previously documented assessment. Patient and/or family updated on plan of care and expected duration. Pain level reassessed. Patient is alert, oriented x 3, equal unlabored respirations, skin warm/dry/pink. Psych: 10:26 Subjective: Patient's mood is angry, Delusions are denied, Hallucinations are auditory, hj Having thoughts of. Objective: Patient is irritable, Speech is normal, Affect is inappropriate. 10:45 Interventions: pt denies SI or HI. Suicide Risk Assessment: Sad Person Scale: Sex of tw2 patient: Female: Score 0 points. Age of patient: Score 0 point if patient falls outside of specified age parameters. Depression: Score 0 point if signs of depression are not present. Previous Attempt: Score 0 point if patient has not previously attempted suicide. Substance Abuse: Score 0 point if patient does not abuse alcohol or drugs. Rational Thinking: Score 0 point if patient has rational thinking. Social Support: Score 1 point if social support is lacking and/or unavailable. Organized Plan: Score 0 if patient did not have an organized plan in place. Relationship: Score 1 point if patient is , , , or for a single male Chronic Sickness: Score 0 point if patient does not have a chronic illness, debilitating, or severe disorder. TOTAL POINTS: If total points are 0-2, proposed clinical action is to send home with follow-up. Safety Checks: Personal items have not been removed. Door is open. No visitors are present at this time. Pt denies substance abuse. 11:03 Commitment: see notes. tw2 Vital Signs: 10:25 BP 124 / 79; Pulse 92; Resp 18; Temp 98.4(TE); Pulse Ox 100% on R/A; Weight 65.77 kg; hj Height 5 ft. 4 in. (162.56 cm); 10:25 Body Mass Index 24.89 (65.77 kg, 162.56 cm) ED Course: 10:10 Patient arrived in ED. mr 10:10 None, None is Private Physician. mr 10:23 Triage completed. hj 10:26 Arm band placed on left wrist. 10:37 Henrry Whittington MD is Attending Physician. gs 10:40 Bed in low position. Call light in reach. Pulse ox on. NIBP on. tw2 10:45 Joleen Roque, RN is Primary Nurse. tw2 11:03 No provider procedures requiring assistance completed. Patient did not have IV access tw2 during this emergency room visit. Administered Medications: No medications were administered Outcome: 10:56 Discharge ordered by . gs 11:03 Discharged to home ambulatory. tw2 11:03 Condition: stable 11:03 Discharge instructions given to patient, Instructed on discharge instructions, follow up and referral plans. Demonstrated understanding of instructions, follow-up care, to see Dr. Flores/Carri Nash office today for appointment 11:04 Patient left the ED. tw2 13:06 Patient left the ED. Signatures: Shante Porter mr GastelumDick, RN AKASH Joleen Roque RN RN tw2 Henrry Whittington MD MD Corrections: (The following items were deleted from the chart) 10:27 10:25 Pulse 92bpm; Resp 18bpm; Pulse Ox 100% RA; Temp 98.4F Temporal; 65.77 kg; Height hj 5 ft. 4 in.; BMI: 24.8; hj 10:36 10:22 Presenting complaint: Patient states: 2 months ago, i started hearing voices and hj you were out of medication for months; denies suicidal or homicidal tendencies; hj 10:37 10:22 Presenting complaint: Patient states: 2 months ago, i started hearing voices and hj i was out of my medication for months; denies suicidal or homicidal tendencies; hj
[2017-12-19 11:07] VITALS: BP 124/79; TEMP 98.4; O2SAT 100
== END 2017-12-19 13:06 | disposition home or self-care (01) ==
LOC: ER 10:08
DX: F31.9 Bipolar disorder, unspecified (principal); F90.9 Attention-deficit hyperactivity disorder, unspecified type; F41.9 Anxiety disorder, unspecified; F17.210 Nicotine dependence, cigarettes, uncomplicated; Z88.5 Allergy status to narcotic agent
CPT/HCPCS: 99284

== ENCOUNTER 2018-02-16 16:55 | Emergency (ER) | payer OTHER ==
--- OUTSIDE RECORDS SUMMARY | 2018-02-16 16:57 | XMS REPORT ---
:1980 [facility] Address [address] [place] [address] Dr. Moore [address] [place] [id number] Care Team Providers Name Role Phone UNKNOWN, [...] (test code=TSH) 2.42 mIU/mL 0.270-4.200 BHCG, Serum, [id number] 07:29:00 Test Item Value Reference Range Comments B hCG, Quant (test <1 mIU/mL Weeks of Gestation Ranges code=BHCGQT) (mIU/mL)3 weeks 5.40 - 72.04 weeks 10.2 - 7085 weeks 217 - 87782 weeks 152 - 395721 weeks 4059 - 5207730 weeks 98412 - 6992390 weeks 14441 - 78324466 weeks 49386 - 37355150 weeks 92416 - 43383371 weeks 39801 - 9781385 weeks 60369 - 2887256 weeks 7404 - 4317601 weeks 6040 - 9426656 weeks 3497 - 68464 Lipid [id number] 07:19:00 Test Item Value Reference Range Comments Cholesterol (test 132 mg/dL 0-200 code=CHOL) Triglycerides (test 122 mg/dL 9-200 code=TRIG) HDL (test code=HDL) 21 mg/dL 50-60 Chol/HDL (test 6.3 Ratio 0.0-4.4 code=CHOLPHDL) LDL, Calculated (test 87 0-130 (NOTE)RISK OF HEART code=LDLC) DISEASEPublished by [place] Heart AssociationAnalyte Optimal Boderline Increased RiskCHOL <200 200-239 >240TRIG <150 150-199 >200HDL Male: >60 <40HDL Female: >60 <50LDL <100 130-159 >160LDL NEAR OPTIMAL IS 100-129 VLDL (test code=VLDL) 24 mg/dL 5-40 LDL/HDL (test code=LDLPHDL) 4 [id number] 04:24:00 Test Item Value Reference Range Comments [...] code=PROPOX) THC (test code=THC) POSITIVE Negative Urinalysis [id number] 03:47:00 Test Item Value Reference Range Comments Color (test code=COLOR) [place] Yellow,Straw,Pl yellow The value [place] originally released by [employer] on 10/11/2017 03:42 waschanged to [place] by [employer] on 10/11/2017 03:47 Clarity (test code=CLAR) Sl Cloudy Clear The value Clear originally released by [employer] on 10/11/2017 03:42 waschanged to Sl Cloudy by [employer] on 10/11/2017 03:47 Specific [place] (test 1.006 1.001-1.035 code=SPGR) pH (test code=PH) [...] Bacteria (test code=BACT) Few /HPF Comprehensive Metabolic [id number] 01:00:00 Test Item Value Reference Range Comments [...] race is not provided, and the patient isAfrican-Indian, multiply by 1.212. If sex is not provided, and thepatient is female, multiply by 0.742. Results for patients <18 years ofage have not been validated by the MDRD study and should be interpretedwith caution.eGFR Result Interpretation:eGFR > or=60 is in the Normal RangeeGFR < 60 may mean kidney diseaseeGFR < 15 may mean kidney failureRanges recommended by the National Kidney Foundation,http://nkdep.nih .gov Alcohol/Ethanol, [id number] 01:00:00 Test Item Value Reference Range Comments Alcohol, Ethyl (test <0.01 g/dL 0.00-0.01 Intoxicated 0.080 g/dL or code=ETOH) more CBC with [id number] 00:45:00 Test Item Value Reference Range Comments [...] Lymph Abs (test code=ALYMPH) 3.8 K/cumm 0.5-4.6 [place] Abs (test code=AMONO) 0.5 K/cumm 0.0-1.2 Eos Abs (test code=AEOS) 1.24 K/cumm 0.00-0.74 Baso Abs (test code=ABASO) 0.1 K/cumm 0.00-0.21
--- NOTE | 2018-02-16 17:48 | EDPHYS ---
Physician Documentation [facility] Name: Lorene Singer Age: 37 yrs Sex: Female : 1980 Arrival Date: 02/16/2018 Time: 16:58 Bed 17 Private MD: None, None ED Physician Lon Koch HPI: 02/16 17:24 This 37 yrs old Female presents to ER via Ambulatory with complaints of Chest rn Pain, Anxiety. 17:24 The patient or guardian reports chest pain that is located primarily in the chest rn diffusely. The pain does not radiate. Associated signs and symptoms: Pertinent positives: lightheadedness, palpitations, shortness of breath, Pertinent negatives: abdominal pain, cough, lower extremity swelling, syncope, vomiting. The chest pain is described as dull. Duration: The patient or guardian reports multiple episodes, that are intermittent. Modifying factors: The symptoms are alleviated by nothing. the symptoms are aggravated by nothing. The patient has not recently seen a physician. Reports having an anxiety attack, reports has been on klonopin for a long time, recently ran out of [employer], came here because someone wrote for klonopin in past. Reports typical of anxiety attacks in past, + heart racing and sob. . 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 - Social history:: Smoking status: Patient uses tobacco products, smokes one pack cigarettes per day. - Ebola Screening: : Patient negative for fever greater than or equal to 101.5 degrees Fahrenheit, and additional compatible Ebola Virus Disease symptoms Patient denies exposure to infectious person Patient denies travel to an Ebola-affected area in the 21 days before illness onset No symptoms or risks identified at this time. - Family history:: not pertinent. - Hospitalizations: : No recent hospitalization is reported. ROS: 17:24 Constitutional: Negative for fever, chills, and weight loss, Eyes: Negative for injury, rn pain, redness, and discharge, Neck: Negative for injury, pain, and swelling, Cardiovascular: Negative for edema Respiratory: Negative for cough, wheezing, and pleuritic chest pain, Abdomen/GI: Negative for abdominal pain, nausea, vomiting, diarrhea, and constipation, MS/Extremity: Negative for injury and deformity, Skin: Negative for injury, rash, and discoloration, Neuro: Negative for headache, weakness, and seizure Exam: 17:24 Constitutional: This is a well developed, well nourished patient who is awake, alert, rn and in no acute distress. Head/Face: Normocephalic, atraumatic. Eyes: Pupils equal round and reactive to light, extra-ocular motions intact. Lids and lashes normal. Conjunctiva and sclera are non-icteric and not injected. Cornea within normal limits. Periorbital areas with no swelling, redness, or edema. Cardiovascular: tachycardic, regular, no murmur Respiratory: + mild tachypnea, clear bilateral breath sounds Abdomen/GI: Soft, non-tender, with normal bowel sounds. No distension or tympany. No guarding or rebound. No evidence of tenderness throughout. MS/ Extremity: Pulses equal, no cyanosis. Neurovascular intact. Full, normal range of motion. Equal circumference. Neuro: Awake and alert, GCS 15, oriented to person, place, time, and situation. Cranial nerves II-XII grossly intact. Motor strength 5/5 in all extremities. Sensory grossly intact. Cerebellar exam normal. Normal gait. Vital Signs: 17:12 BP 130 / 88; Pulse 106; Resp 23; Temp 98.2; Pulse Ox 99% on R/A; Weight 63.5 kg; Height aj 5 ft. 4 in. (162.56 cm); 17:31 BP 133 / 82; Pulse 96; Resp 22; Pulse Ox 99% on R/A; Pain 7/10; ch 17:12 Body Mass Index 24.03 (63.50 kg, 162.56 cm) MDM: 17:15 Patient medically screened. rn 17:45 Differential diagnosis: anxiety. Data reviewed: vital signs, nurses notes, EKG, and as rn a result, I will discharge patient. Counseling: I had a detailed discussion with the patient and/or guardian regarding: the historical points, exam findings, and any diagnostic results supporting the discharge/admit diagnosis, the need for outpatient follow up, to return to the emergency department if symptoms worsen or persist or if there are any questions or concerns that arise at home. Special discussion: I discussed with the patient/guardian in detail that at this point there is no indication for admission to the hospital. It is understood, however, that if the symptoms persist or worsen the patient needs to return immediately for re-evaluation. ED course: Told patient could not give her benzo or sedative given she drove herself here and has small child with her, initially she lied and states her mother was outside, we checked in lobby and no one answered to given name, patient then requested cab voucher and benzo as alternative, told her no, then she requested ambulance transfer to [place]. Eventually she got upset and wanted to leave without treatment. . 02/16 17:22 Order name: EKG; Complete Time: 17:23 rn 02/16 17:22 Order name: EKG - Nurse/Tech; Complete Time: 17:27 rn Administered Medications: No medications were administered Disposition: 02/16/18 17:47 Discharged to Home. Impression: Anxiety disorder, unspecified. - Condition is Stable. - Discharge Instructions: Panic Attacks, Generalized Anxiety Disorder. - Medication Reconciliation Form, Thank You Letter, Antibiotic Education, Prescription Opioid Use form. - Follow up: Private Physician; When: As needed; Reason: Recheck today's complaints, Re-evaluation by your physician. - Problem is new. - Symptoms have improved. Signatures: Nicole Elizondo RN RN ch Myers, Amanda, RN RN aj Nieto, Roman, MD MD rn Corrections: (The following items were deleted from the chart) 17:27 17:24 Constitutional: This is a well developed, well nourished patient who is awake, rn alert, and in no acute distress. Head/Face: Normocephalic, atraumatic. Eyes: Pupils equal round and reactive to light, extra-ocular motions intact. Lids and lashes normal. Conjunctiva and sclera are non-icteric and not injected. Cornea within normal limits. Periorbital areas with no swelling, redness, or edema. Cardiovascular: Regular rate and rhythm with a normal S1 and S2. No gallops, murmurs, or rubs. Normal PMI, no JVD. No pulse deficits. Respiratory: Lungs have equal breath sounds bilaterally, clear to auscultation and percussion. No rales, rhonchi or wheezes noted. No increased work of breathing, no retractions or nasal flaring. Abdomen/GI: Soft, non-tender, with normal bowel sounds. No distension or tympany. No guarding or rebound. No evidence of tenderness throughout. MS/ Extremity: Pulses equal, no cyanosis. Neurovascular intact. Full, normal range of motion. Equal circumference. Neuro: Awake and alert, GCS 15, oriented to person, place, time, and situation. Cranial nerves II-XII grossly intact. Motor strength 5/5 in all extremities. Sensory grossly intact. Cerebellar exam normal. Normal gait. rn 17:49 17:47 02/16/2018 17:47 Discharged to Home. Impression: Anxiety disorder, unspecified. ch Condition is Stable. Forms are Medication Reconciliation Form, Thank You Letter, Antibiotic Education, Prescription Opioid Use. Follow up: Private Physician; When: As needed; Reason: Recheck today's complaints, Re-evaluation by your physician. Problem is new. Symptoms have improved. rn
--- NOTE | 2018-02-16 17:48 | ER ---
Nurse's Notes [facility] Name: Lorene Singer Age: 37 yrs Sex: Female : 1980 Arrival Date: 02/16/2018 Time: 16:58 Bed 17 Private MD: None, None Diagnosis: Anxiety disorder, unspecified Presentation: 02/16 17:10 Presenting complaint: Patient states: Chest pain and anxiety after taking 3 aj Hydroxizine. Transition of care: patient was not received from another setting of care. Onset of symptoms was February 16, 2018. Risk Assessment: Do you want to hurt yourself or someone else? Patient reports no desire to harm self or others. Initial Sepsis Screen: Does the patient meet any 2 criteria? No. Patient's initial sepsis screen is negative. Does the patient have a suspected source of infection? No. Patient's initial sepsis screen is negative. Note Patient drove herself and small child to the ER. Care prior to arrival: None. 17:10 Method Of Arrival: Ambulatory aj 17:10 Acuity: JAMSHID 3 aj Triage Assessment: 17:12 General: Appears in no apparent distress. comfortable, Behavior is agitated, anxious. aj Pain: Complains of pain in chest. Neuro: Level of Consciousness is awake, alert, obeys commands, Oriented to person, place, time, situation, Appropriate for age. Cardiovascular: Reports chest pain. Respiratory: Airway is patent Respiratory effort is even, unlabored, Respiratory pattern is regular, symmetrical. Derm: Skin is intact, is healthy with good turgor, Skin is pink, warm \T\ dry. normal. 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 - Social history:: Smoking status: Patient uses tobacco products, smokes one pack cigarettes per day. - Ebola Screening: : Patient negative for fever greater than or equal to 101.5 degrees Fahrenheit, and additional compatible Ebola Virus Disease symptoms Patient denies exposure to infectious person Patient denies travel to an Ebola-affected area in the 21 days before illness onset No symptoms or risks identified at this time. - Family history:: not pertinent. - Hospitalizations: : No recent hospitalization is reported. Screenin:25 Abuse screen: Denies threats or abuse. Denies injuries from another. Nutritional ch screening: No deficits noted. Tuberculosis screening: No symptoms or risk factors identified. Fall Risk None identified. Assessment: 17:25 Reassessment: Patient appears in no apparent distress at this time. Patient and/or ch family updated on plan of care and expected duration. Pain level reassessed. General: Appears in no apparent distress. uncomfortable, unkempt, Behavior is anxious, fussy, restless. Pain: Complains of pain in chest Pain does not radiate. Pain currently is 5 out of 10 on a pain scale. at worst was 8 out of 10 on a pain scale. Pain began suddenly, pt states it feels like her panic attack/anxiety pain. Neuro: No deficits noted. Cardiovascular: Heart tones S1 S2 present Capillary refill < 3 seconds in bilateral fingers toes Clubbing of nail beds is absent Patient's skin is warm and dry. Rhythm is sinus tachycardia. Respiratory: Airway is patent Trachea midline Respiratory effort is even, unlabored, Respiratory pattern is tachypnea Breath sounds are clear bilaterally. GI: Reports nausea. : No signs and/or symptoms were reported regarding the genitourinary system. Derm: Skin is pink, warm \T\ dry. 17:26 Reassessment: Patient claims that her mother is in the lobby and can give her a ride. ss Attempted to locate mother in lobby. No family found and ER registration staff report that patient came in with her and her young child only. 17:31 Reassessment: Patient appears in no apparent distress at this time. pt told us her mom joan was in the lobby. pt has a minor in the room with her. I told the pt I would go get her mom from the lobby, but that we cannot give her any sedatives when she has a child with her, its not safe. pt states her mom is in route here, that she needs medications and that her mom will be here soon. I tell the pt that we have to see her ride before we can give her any sedative. pt states she does not have a ride but we should call her a taxi cab and she would take a taxi home. I tell the pt that she still has a minor in the room with her, and we cannot sedate her with minor present. pt is becoming more agitated, I leave the room to give the pt a few min to calm down, and to speak with the provider. Padmini and Funmi both hear the exchange between pt and myself. pt is very agitated. 17:35 Reassessment: Patient appears in no apparent distress at this time. Dr. Koch notified of pt request for sedatives without a ride. erp states the pt must have an adult present prior to us giving her any sedatives. 17:43 Reassessment: Patient appears in no apparent distress at this time. pt states if she is ch not getting any medications here, can she get a prescription for something for anxiety. I check with Dr. Koch and he states no, he will discharge the pt home without a prescription but with follow up instructions. Vital Signs: 17:12 BP 130 / 88; Pulse 106; Resp 23; Temp 98.2; Pulse Ox 99% on R/A; Weight 63.5 kg; Height aj 5 ft. 4 in. (162.56 cm); 17:31 BP 133 / 82; Pulse 96; Resp 22; Pulse Ox 99% on R/A; Pain 7/10; ch 17:12 Body Mass Index 24.03 (63.50 kg, 162.56 cm) ED Course: 16:58 Patient arrived in ED. mr 16:59 None, None is Private Physician. mr 17:11 Triage completed. aj 17:12 Arm band placed on right wrist. Patient placed in an exam room. aj 17:15 Lon Koch MD is Attending Physician. rn 17:25 Nicole Elizondo, MILTON is Primary Nurse. 17:25 No apparent distress. Resting quietly. 17:25 Patient has correct armband on for positive identification. Bed in low position. Call light in reach. Side rails up X 1. wire spiral binder on. Pulse ox on. NIBP on. 17:25 No provider procedures requiring assistance completed. Patient maintains SpO2 ch saturation greater than 95% on room air. 17:27 EKG done, by emergency care tech. reviewed by Lon Koch MD. 3 17:43 Patient did not have IV access during this emergency room visit. Administered Medications: No medications were administered Outcome: 17:47 Discharge ordered by . milton 17:49 Discharged to home ambulatory, pt ambulates out before signing discharge papers. 17:49 Condition: stable 17:49 Instructed on pt ambulates out prior to signing discharge papers. 17:49 Patient left the ED. Signatures: Nicole Elizondo RN RN ch Myers, Amanda, RN RN aj Rivera, Maria mr Nieto, Roman, MD MD rn Smirch, Shelby, RN RN ss Montes, Shakira [facility]
[2018-02-16 17:53] VITALS: TEMP 98.2; O2SAT 99
[2018-02-16 17:55] VITALS: BP 133/82
--- NOTE | 2018-02-17 07:12 | EKG ---
Test Date: 2018-02-16 Test Time: 17:19:47 Children'S Minister: BRYCE MEASUREMENT RESULTS: Intervals: Rate: 106 WA: 136 QRSD: 80 QT: 364 QTc: 483 [place]: P: 70 WA: 136 QRS: 23 T: 24 INTERPRETIVE STATEMENTS: Sinus tachycardia Possible Left atrial enlargement Septal infarct, age undetermined Abnormal ECG Compared to ECG 10/26/2017 19:40:59 No significant changes Electronically Signed On 02-17-18 07:11:26 CDT by Fernando Wong
== END 2018-02-16 17:49 | disposition home or self-care (01) ==
LOC: ER 16:55
DX: F41.9 Anxiety disorder, unspecified (principal); F17.210 Nicotine dependence, cigarettes, uncomplicated
CPT/HCPCS: 93005; 99284

== ENCOUNTER 2018-04-14 22:25 | Emergency (ER) | payer OTHER, SELFPAY ==
--- OUTSIDE RECORDS SUMMARY | 2018-04-14 22:27 | XMS REPORT ---
:1980 [facility] Address [address] [place] [address] Dr. Moore [address] [place] [id number] Care Team Providers Name Role Phone UNKNOWN, [...] (test code=TSH) 2.42 mIU/mL 0.270-4.200 BHCG, Serum, [id number] 07:29:00 Test Item Value Reference Range Comments B hCG, Quant (test <1 mIU/mL Weeks of Gestation Ranges code=BHCGQT) (mIU/mL)3 weeks 5.40 - 72.04 weeks 10.2 - 7085 weeks 217 - 97897 weeks 152 - 594261 weeks 4059 - [id number] weeks 56230 - [id number] weeks 32069 - [id number] weeks 33208 - [id number] weeks 78610 - [id number] weeks 79565 - 3278084 weeks 30207 - 0537634 weeks 2604 - 1024735 weeks 8740 - 0109240 weeks 2654 - 03931 Lipid [id number] 07:19:00 Test Item Value Reference Range Comments Cholesterol (test 132 mg/dL 0-200 code=CHOL) Triglycerides (test 122 mg/dL 9-200 code=TRIG) HDL (test code=HDL) 21 mg/dL 50-60 Chol/HDL (test 6.3 Ratio 0.0-4.4 code=CHOLPHDL) LDL, Calculated (test 87 0-130 (NOTE)RISK OF HEART code=LDLC) DISEASEPublished by Danish Heart AssociationAnalyte Optimal Boderline Increased RiskCHOL <200 200-239 >240TRIG <150 150-199 >200HDL Male: >60 <40HDL Female: >60 <50LDL <100 130-159 >160LDL NEAR OPTIMAL IS 100-129 VLDL (test code=VLDL) 24 mg/dL 5-40 LDL/HDL (test code=LDLPHDL) 4 [id number] 04:24:00 Test Item Value Reference Range Comments [...] code=PROPOX) THC (test code=THC) POSITIVE Negative Urinalysis [id number] 03:47:00 Test Item Value Reference Range Comments Color (test code=COLOR) Marvin Yellow,Straw,Pl yellow The value [place] originally released by [employer] on 10/11/2017 03:42 waschanged to Marvin by [employer] on 10/11/2017 03:47 Clarity (test code=CLAR) Sl Cloudy Clear The value Clear originally released by [employer] on 10/11/2017 03:42 waschanged to Sl Cloudy by [employer] on 10/11/2017 03:47 Specific [place] (test 1.006 1.001-1.035 code=SPGR) pH (test code=PH) [...] Bacteria (test code=BACT) Few /HPF Comprehensive Metabolic [id number] 01:00:00 Test Item Value Reference Range Comments [...] race is not provided, and the patient isAfrican-Danish, multiply by 1.212. If sex is not provided, and thepatient is female, multiply by 0.742. Results for patients <18 years ofage have not been validated by the MDRD study and should be interpretedwith caution.eGFR Result Interpretation:eGFR > or=60 is in the Normal RangeeGFR < 60 may mean kidney diseaseeGFR < 15 may mean kidney failureRanges recommended by the National Kidney Foundation,http://nkdep.nih .gov Alcohol/Ethanol, [id number] 01:00:00 Test Item Value Reference Range Comments Alcohol, Ethyl (test <0.01 g/dL 0.00-0.01 Intoxicated 0.080 g/dL or code=ETOH) more CBC with [id number] 00:45:00 Test Item Value Reference Range Comments [...] Lymph Abs (test code=ALYMPH) 3.8 K/cumm 0.5-4.6 Lajas Abs (test code=AMONO) 0.5 K/cumm 0.0-1.2 Eos Abs (test code=AEOS) 1.24 K/cumm 0.00-0.74 Baso Abs (test code=ABASO) 0.1 K/cumm 0.00-0.21
[2018-04-14 23:30] LABS: Absolute Lymphocytes (CBC) 3.1 K/uL (0.7-4.9); Absolute Monocytes 0.7 K/uL (0.1-1.3); Absolute Neutrophil 6.7 K/uL (1.8-8.0); Basophils % 0.4 % (0-1.3); Hematocrit 34.6 % (36.0-45.0); Lymphocytes % 28.8 % (15.3-44.8); MCH 32.4 pg (27.0-35.0); RBC Red Blood Cell Count 3.68 M/uL (3.86-4.86)
[2018-04-14 23:36] LABS: Protime INR 0.92
[2018-04-15] LABS: ALT/SGPT 19 U/L (12-78); AST/SGOT 14 U/L (15-37); Albumin 3.6 g/dL (3.4-5.0); Alkaline Phosphatase 92 U/L (45-117); BUN Blood Urea Nitrogen 18 mg/dL (7-18); Bicarbonate 30 mmol/L (21-32); Bilirubin Direct < 0.1 mg/dL (0-0.2); Bilirubin Total 0.2 mg/dL (0.2-1.0); CKMB Creatine Kinase MB 1.2 ng/mL (0.3-3.6); Creatine Phosphokinase 72 U/L (26-192); Glucose Level 89 mg/dL (74-106); Magnesium 1.9 mg/dL (1.8-2.4); NT PRO-BNP 67 pg/mL (<125); Potassium 3.8 mmol/L (3.5-5.1); Protein, Total 6.7 g/dL (6.4-8.2); Sodium Level 140 mmol/L (136-145); Troponin (Emerg Dept Use Only) < 0.02 ng/mL (0.0-0.045)
--- NOTE | 2018-04-15 00:29 | EDPHYS ---
Physician Documentation [facility] Name: Lorene Singer Age: 37 yrs Sex: Female : 1980 Arrival Date: 04/14/2018 Time: 22:29 Bed 5 Private MD: ED Physician Reed Massey HPI: 04/14 23:11 This 37 yrs old Female presents to ER via EMS with complaints of Chest Pain. tw4 23:11 The patient or guardian reports chest pain that is located primarily in the anterior tw4 chest wall, left. The pain does not radiate. Associated signs and symptoms: The patient has no apparent associated signs or symptoms. The chest pain is described as crushing. Duration: The patient or guardian reports a single episode, that is now resolved. Modifying factors: The symptoms are alleviated by nothing. the symptoms are aggravated by nothing. Severity of pain: At its worst the pain was mild in the emergency department the pain has resolved. The patient has not experienced similar symptoms in the past. 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 - Social history:: Smoking status: Patient uses tobacco products, smokes one-half pack cigarettes per day. - Ebola Screening: : No symptoms or risks identified at this time. ROS: 23:11 Constitutional: Negative for fever, chills, and weight loss, Respiratory: Negative for tw4 shortness of breath, cough, wheezing, and pleuritic chest pain, Abdomen/GI: Negative for abdominal pain, nausea, vomiting, diarrhea, and constipation, Back: Negative for injury and pain, MS/Extremity: Negative for injury and deformity, Skin: Negative for injury, rash, and discoloration, Neuro: Negative for headache, weakness, numbness, tingling, and seizure. 23:11 Cardiovascular: Positive for chest pain, Negative for edema, orthopnea, palpitations. Exam: 23:11 Constitutional: This is a well developed, well nourished patient who is awake, alert, tw4 and in no acute distress. Head/Face: Normocephalic, atraumatic. Chest/axilla: Normal chest wall appearance and motion. Nontender with no deformity. No lesions are appreciated. Cardiovascular: Regular rate and rhythm with a normal S1 and S2. No gallops, murmurs, or rubs. Normal PMI, no JVD. No pulse deficits. Respiratory: Lungs have equal breath sounds bilaterally, clear to auscultation and percussion. No rales, rhonchi or wheezes noted. No increased work of breathing, no retractions or nasal flaring. Abdomen/GI: Soft, non-tender, with normal bowel sounds. No distension or tympany. No guarding or rebound. No evidence of tenderness throughout. MS/ Extremity: Pulses equal, no cyanosis. Neurovascular intact. Full, normal range of motion. Neuro: Awake and alert, GCS 15, oriented to person, place, time, and situation. Cranial nerves II-XII grossly intact. Motor strength 5/5 in all extremities. Sensory grossly intact. Cerebellar exam normal. Normal gait. Psych: Awake, alert, with orientation to person, place and time. Behavior, mood, and affect are within normal limits. 23:11 Constitutional: The patient appears anxious. Vital Signs: 22:34 BP 122 / 69; Pulse 97; Resp 18; Temp 98.5(O); Pulse Ox 98% on R/A; Weight 63.5 kg; tl2 Height 5 ft. 4 in. (162.56 cm); Pain 5/10; 23:23 BP 103 / 52; Pulse 72; Resp 18; Pulse Ox 98% on R/A; tl2 04/15 00:22 BP 98 / 45; Pulse 67; Resp 18; Pulse Ox 97% on R/A; tl2 00:53 BP 107 / 59; Pulse 75; Resp 18; Pulse Ox 98% on R/A; tl2 04/14 22:34 Body Mass Index 24.03 (63.50 kg, 162.56 cm) tl2 MDM: 04/14 22:37 Patient medically screened. 04/14 23:13 Order name: Basic Metabolic Panel 04/14 23:13 Order name: CBC with Diff 04/14 23:13 Order name: Ckmb 04/14 23:13 Order name: CPK 04/14 23:13 Order name: LFT's 04/14 23:13 Order name: Magnesium rust 04/14 23:13 Order name: NT PRO-BNP rust 04/14 23:13 Order name: PT-INR rust 04/14 23:13 Order name: Ptt, Activated 04/14 23:13 Order name: Troponin (emerg Dept Use Only) rust 04/14 23:13 Order name: XRAY Chest (1 view) rust 04/14 23:13 Order name: EKG; Complete Time: 23:14 rust 04/14 23:13 Order name: Cardiac monitoring; Complete Time: 23:23 rust 04/14 23:13 Order name: EKG - Nurse/Tech; Complete Time: 23:35 rust 04/14 23:13 Order name: IV Saline Lock; Complete Time: 23:23 rust 04/14 23:13 Order name: Labs collected and sent; Complete Time: 23:23 rust 04/14 23:13 Order name: O2 Per Protocol; Complete Time: 23:23 rust 04/14 23:13 Order name: O2 Sat Monitoring; Complete Time: 23:23 tw Administered Medications: No medications were administered Disposition: 04/15/18 00:28 Discharged to Home. Impression: Chest pain, unspecified. - Condition is Stable. - Discharge Instructions: Nonspecific Chest Pain, Pain Without a Known Cause, Generalized Anxiety Disorder. - Medication Reconciliation Form, Thank You Letter, Antibiotic Education, Prescription Opioid Use form. - Follow up: Private Physician; When: Upon discharge from the Emergency Department; Reason: Further diagnostic work-up, Recheck today's complaints, Continuance of care. - Problem is new. - Symptoms have improved. Signatures: Dispatcher [facility] Lucrecia Banda RN RN tl2 Reed Massey MD MD tw4 Corrections: (The following items were deleted from the chart) 04/15 00:56 04/14 23:13 Urine Dipstick-Anc[facility]. [facility] 04/15 00:56 00:28 04/15/2018 00:28 Discharged to Home. Impression: Chest pain, unspecified. tl2 Condition is Stable. Forms are Medication Reconciliation Form, Thank You Letter, Antibiotic Education, Prescription Opioid Use. Follow up: Private Physician; When: Upon discharge from the Emergency Department; Reason: Further diagnostic work-up, Recheck today's complaints, Continuance of care. Problem is new. Symptoms have improved. tw4
--- NOTE | 2018-04-15 00:29 | ER ---
Nurse's Notes [facility] Name: Lorene Singer Age: 37 yrs Sex: Female : 1980 Arrival Date: 04/14/2018 Time: 22:29 Bed 5 Private MD: Diagnosis: Chest pain, unspecified Presentation: 04/14 22:30 Presenting complaint: Patient states: Chest pain started about 30 minutes ago, 7/10 tl2 pain. Transition of care: patient was not received from another setting of care. Onset of symptoms was April 14, 2018 at 22:00. Risk Assessment: Do you want to hurt yourself or someone else? Patient reports no desire to harm self or others. Initial Sepsis Screen: Does the patient meet any 2 criteria? No. Patient's initial sepsis screen is negative. Does the patient have a suspected source of infection? No. Patient's initial sepsis screen is negative. Care prior to arrival: Medication(s) given: ASA, 81 mg, x 4, IV initiated. 20 GA, in the left antecubital area. 22:30 Method Of Arrival: EMS: [facility] tl2 22:30 Acuity: JAMSHID 3 tl2 Triage Assessment: 22:34 General: Appears in no apparent distress. uncomfortable, Behavior is calm, cooperative, tl2 appropriate for age. Pain: Complains of pain in chest. Neuro: Level of Consciousness is awake, alert, obeys commands, Oriented to person, place, time, situation. Cardiovascular: Chest pain is described as mild, quality is pressure, is located in anterior began 30 minutes prior to arrival. Respiratory: Airway is patent Respiratory effort is even, unlabored, Respiratory pattern is regular, symmetrical. GI: No signs and/or symptoms were reported involving the gastrointestinal system. : No signs and/or symptoms were reported regarding the genitourinary system. Derm: Skin is pink, warm \T\ dry. 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 - Social history:: Smoking status: Patient uses tobacco products, smokes one-half pack cigarettes per day. - Ebola Screening: : No symptoms or risks identified at this time. Screenin:37 Abuse screen: Denies threats or abuse. Nutritional screening: No deficits noted. tl2 Tuberculosis screening: No symptoms or risk factors identified. Fall Risk None identified. Assessment: 22:37 General: see triage assessment. tl2 22:38 Pain: Pain does not radiate. Pain began 30 min ago. tl2 23:23 Reassessment: Patient appears in no apparent distress at this time. Patient and/or tl2 family updated on plan of care and expected duration. Pain level reassessed. Patient is alert, oriented x 3, equal unlabored respirations, skin warm/dry/pink. Pt resting. Asking for food and water. Instructed that we will wait for labs. 04/15 00:22 Reassessment: Awaiting physician to review lab results. tl2 00:53 Reassessment: Patient appears in no apparent distress at this time. Patient and/or tl2 family updated on plan of care and expected duration. Pain level reassessed. Patient is alert, oriented x 3, equal unlabored respirations, skin warm/dry/pink. Pt verbalized understanding of discharge instructions, need for follow up. Escorted out of ER by law enforcement. Vital Signs: 04/14 22:34 BP 122 / 69; Pulse 97; Resp 18; Temp 98.5(O); Pulse Ox 98% on R/A; Weight 63.5 kg; tl2 Height 5 ft. 4 in. (162.56 cm); Pain 5/10; 23:23 BP 103 / 52; Pulse 72; Resp 18; Pulse Ox 98% on R/A; tl2 04/15 00:22 BP 98 / 45; Pulse 67; Resp 18; Pulse Ox 97% on R/A; tl2 00:53 BP 107 / 59; Pulse 75; Resp 18; Pulse Ox 98% on R/A; tl2 04/14 22:34 Body Mass Index 24.03 (63.50 kg, 162.56 cm) tl2 ED Course: 04/14 22:29 Patient arrived in ED. tl2 22:31 Triage completed. tl2 22:34 Arm band placed on right wrist. tl2 22:37 Reed Massey MD is Attending Physician. tw4 22:37 Patient has correct armband on for positive identification. Bed in low position. Call tl2 light in reach. Side rails up X2. monitoring and evaluation advisor on. Pulse ox on. NIBP on. 22:37 Maintain EMS IV. Dressing intact. Good blood return noted. Site clean \T\ dry. Gauge \T\ tl 2 site: 20 g L AC. Patient maintains SpO2 saturation greater than 95% on room air. 23:57 X-ray completed. Portable x-ray completed in exam room. Patient tolerated procedure tm4 well. 04/15 00:17 XRAY Chest (1 view) In Process Unspecified. EDMS 00:53 No provider procedures requiring assistance completed. IV discontinued, intact, tl2 bleeding controlled, No redness/swelling at site. Pressure dressing applied. Administered Medications: No medications were administered Outcome: 00:28 Discharge ordered by . tw4 00:53 Discharged to Law Enforcement tl2 00:53 Condition: stable 00:53 Discharge instructions given to patient, police. 00:56 Patient left the ED. tl2 Signatures: Dispatcher [employer] EDME Bridget Girard tm4 Lucrecia Banda RN RN tl2 Reed Massey MD MD tw4 Corrections: (The following items were deleted from the chart) 04/14 22:47 22:34 BP 137 / 93; Pulse 86bpm; Resp 18bpm; Pulse Ox 98% RA; Temp 99.2F Oral; 95.25 kg; tl2 Height 5 ft. 5 in.; BMI: 34.9; Pain 9/10; tl2
[2018-04-15 01:10] VITALS: TEMP 98.5
[2018-04-15 01:15] VITALS: BP 107/59; O2SAT 98
--- NOTE | 2018-04-15 08:37 | EKG ---
Test Date: 2018-04-14 Test Time: 23:33:30 Pbx Inspector: MYLA MEASUREMENT RESULTS: Intervals: Rate: 73 FL: 138 QRSD: 82 QT: 410 QTc: 451 Steele: P: 74 FL: 138 QRS: 76 T: 63 INTERPRETIVE STATEMENTS: Normal sinus rhythm Normal ECG Compared to ECG 02/16/2018 17:19:47 Sinus tachycardia no longer present Myocardial infarct finding no longer present Electronically Signed On 04-15-18 08:36:21 CDT by Magan Jhaveri
--- NOTE | 2018-04-15 09:41 | RAD REPORT ---
EXAM DESCRIPTION: Guillerminat Single View04/15/2018 12:17 am CLINICAL HISTORY: CHEST PAIN COMPARISON: CHEST SINGLE VIEW dated 07/12/2012 FINDINGS: The left base is mildly hazy. The right lung appears clear. . The heart is normal size IMPRESSION: The left base is mildly hazy probably secondary to overlying soft tissue. Subtle infilt rate can also have this appearance. If symptoms persist PA and lateral chest series would be recommen ded
== END 2018-04-15 00:56 | disposition home or self-care (01) ==
LOC: ER 22:25
DX: R07.9 Chest pain, unspecified (principal); I48.91 Unspecified atrial fibrillation; F17.210 Nicotine dependence, cigarettes, uncomplicated; Z88.5 Allergy status to narcotic agent
CPT/HCPCS: 36415; 71045; 80048; 80076; 82550; 82553; 83735; 83880; 84484; 85025; 85610; 85730; 93005; 99285

== ENCOUNTER 2018-04-15 10:24 | Emergency (ER) | payer SELFPAY ==
--- OUTSIDE RECORDS SUMMARY | 2018-04-15 10:26 | XMS REPORT ---
:1980 [facility] Address [address] [place] [address] Dr. Moore [address] [place] [id number] Care Team Providers Name Role Phone UNKNOWN, [...] (test code=TSH) 2.42 mIU/mL 0.270-4.200 BHCG, Serum, [id number] 07:29:00 Test Item Value Reference Range Comments B hCG, Quant (test <1 mIU/mL Weeks of Gestation Ranges code=BHCGQT) (mIU/mL)3 weeks 5.40 - 72.04 weeks 10.2 - 7085 weeks 217 - 54365 weeks 152 - 491922 weeks 4059 - 6838850 weeks 83380 - 1801084 weeks 50637 - [id number] weeks 40120 - [id number] weeks 47846 - [id number] weeks 51568 - 4600856 weeks 08229 - 4751402 weeks 6004 - 6833558 weeks 8240 - 7254156 weeks 8424 - 96981 Lipid [id number] 07:19:00 Test Item Value Reference Range Comments Cholesterol (test 132 mg/dL 0-200 code=CHOL) Triglycerides (test 122 mg/dL 9-200 code=TRIG) HDL (test code=HDL) 21 mg/dL 50-60 Chol/HDL (test 6.3 Ratio 0.0-4.4 code=CHOLPHDL) LDL, Calculated (test 87 0-130 (NOTE)RISK OF HEART code=LDLC) DISEASEPublished by Sierra Leonean Heart AssociationAnalyte Optimal Boderline Increased RiskCHOL <200 200-239 >240TRIG <150 150-199 >200HDL Male: >60 <40HDL Female: >60 <50LDL <100 130-159 >160LDL NEAR OPTIMAL IS 100-129 VLDL (test code=VLDL) 24 mg/dL 5-40 LDL/HDL (test code=LDLPHDL) 4 [id number] 04:24:00 Test Item Value Reference Range Comments [...] code=PROPOX) THC (test code=THC) POSITIVE Negative Urinalysis [id number] 03:47:00 Test Item Value Reference Range Comments Color (test code=COLOR) [place] Yellow,Straw,Pl yellow The value [place] originally released by [employer] on 10/11/2017 03:42 waschanged to [place] by [employer] on 10/11/2017 03:47 Clarity (test code=CLAR) Sl Cloudy Clear The value Clear originally released by [employer] on 10/11/2017 03:42 waschanged to Sl Cloudy by [employer] on 10/11/2017 03:47 Specific [place] (test 1.006 1.001-1.035 code=SPGR) pH (test code=PH) [...] Bacteria (test code=BACT) Few /HPF Comprehensive Metabolic [id number] 01:00:00 Test Item Value Reference Range Comments [...] race is not provided, and the patient isAfrican-Sierra Leonean, multiply by 1.212. If sex is not provided, and thepatient is female, multiply by 0.742. Results for patients <18 years ofage have not been validated by the MDRD study and should be interpretedwith caution.eGFR Result Interpretation:eGFR > or=60 is in the Normal RangeeGFR < 60 may mean kidney diseaseeGFR < 15 may mean kidney failureRanges recommended by the National Kidney Foundation,http://nkdep.nih .gov Alcohol/Ethanol, [id number] 01:00:00 Test Item Value Reference Range Comments Alcohol, Ethyl (test <0.01 g/dL 0.00-0.01 Intoxicated 0.080 g/dL or code=ETOH) more CBC with [id number] 00:45:00 Test Item Value Reference Range Comments [...] Lymph Abs (test code=ALYMPH) 3.8 K/cumm 0.5-4.6 [place] Abs (test code=AMONO) 0.5 K/cumm 0.0-1.2 Eos Abs (test code=AEOS) 1.24 K/cumm 0.00-0.74 Baso Abs (test code=ABASO) 0.1 K/cumm 0.00-0.21
[2018-04-15 11:30] LABS: Absolute Lymphocytes (CBC) 1.9 K/uL (0.7-4.9); Absolute Monocytes 0.4 K/uL (0.1-1.3); Absolute Neutrophil 4.9 K/uL (1.8-8.0); Basophils % 0.7 % (0-1.3); Eosinophils % 3.6 % (0-4.4); Lymphocytes % 25.7 % (15.3-44.8); MCH 32.7 pg (27.0-35.0); MCV 94.3 fL (80-100); MPV 7.9 fL (7.6-11.3); Monocytes % 5.3 % (3.3-12.3); RBC Red Blood Cell Count 4.03 M/uL (3.86-4.86)
[2018-04-15 11:54] LABS: ALT/SGPT 18 U/L (12-78); AST/SGOT 15 U/L (15-37); Albumin 3.7 g/dL (3.4-5.0); Alkaline Phosphatase 82 U/L (45-117); Amylase Level 43 U/L (25-115); BUN Blood Urea Nitrogen 13 mg/dL (7-18); Bicarbonate 30 mmol/L (21-32); Bilirubin Direct < 0.1 mg/dL (0-0.2); Bilirubin Total 0.3 mg/dL (0.2-1.0); CKMB Creatine Kinase MB 1.1 ng/mL (0.3-3.6); Glucose Level 91 mg/dL (74-106); Lipase 106 U/L (73-393); Magnesium 1.9 mg/dL (1.8-2.4); NT PRO-BNP 77 pg/mL (<125); Potassium 3.7 mmol/L (3.5-5.1); Protein, Total 7.1 g/dL (6.4-8.2); Sodium Level 142 mmol/L (136-145); Troponin (Emerg Dept Use Only) < 0.02 ng/mL (0.0-0.045)
--- NOTE | 2018-04-15 12:04 | RAD REPORT ---
EXAM DESCRIPTION: Guillerminat Single View04/15/2018 11:38 am CLINICAL HISTORY: CHEST PAIN COMPARISON: Chest Single View dated 04/14/2018; FINDINGS: The lungs appear clear of acute infiltrate. The heart is normal size IMPRESSION: No acute abnormalities displayed
--- NOTE | 2018-04-15 12:14 | ER ---
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 Transition of care: patient was not received from another setting of care. Onset of symptoms was April 15, 2018. Risk Assessment: Do you want to hurt yourself or someone else? Patient reports no desire to harm self or others. Initial Sepsis Screen: Does the patient meet any 2 criteria? No. Patient's initial sepsis screen is negative. Does the patient have a suspected source of infection? No. Patient's initial sepsis screen is negative. Care prior to arrival: Medication(s) given: ASA, 325 mg, 0.4 mg Nitro. 10:30 Method Of Arrival: EMS: [facility] em 11:24 Acuity: JAMSHID 3 ss Triage Assessment: 10:34 General: Appears in no apparent distress. comfortable, Behavior is calm, cooperative. em Pain: Complains of pain in chest Pain currently is 10 out of 10 on a pain scale. NORMALIZER: 10:34 LMP 04/14/2018 em Historical: - Allergies: 10:34 Morphine; em - Home Meds: 10:34 Metoprolol Tartrate Oral [Active]; em - PMHx: 10:34 Depression; ADD/ADHD; Anxiety; Atrial Fib; em - PSHx: 10:34 None; em - Immunization history:: Adult Immunizations up to date. - Social history:: Smoking status: Patient uses tobacco products, smokes one-half pack cigarettes per day. - Ebola Screening: : Patient negative for fever greater than or equal to 101.5 degrees Fahrenheit, and additional compatible Ebola Virus Disease symptoms Patient denies exposure to infectious person Patient denies travel to an Ebola-affected area in the 21 days before illness onset No symptoms or risks identified at this time. Screenin:37 Abuse screen: Denies threats or abuse. Nutritional screening: No deficits noted. em Tuberculosis screening: No symptoms or risk factors identified. Fall Risk None identified. Assessment: 10:35 General: Appears in no apparent distress. comfortable, Behavior is calm, cooperative. em Pain: Complains of pain in chest Pain currently is 10 out of 10 on a pain scale. Neuro: Level of Consciousness is awake, alert, obeys commands, Oriented to person, place, time, situation. Cardiovascular: Reports chest pain, nausea, Capillary refill < 3 seconds Patient's skin is warm and dry. Rhythm is sinus rhythm. Respiratory: Airway is patent Respiratory effort is even, unlabored, Respiratory pattern is regular, symmetrical. GI: Abdomen is flat. : No signs and/or symptoms were reported regarding the genitourinary system. EENT: No signs and/or symptoms were reported regarding the EENT system. Derm: Skin is intact, Skin is pink, warm \T\ dry. Musculoskeletal: Range of motion: intact in all extremities. 10:40 General: The previous assessment is accurate, call light remains within reach. . ss 11:46 Reassessment: Patient appears in no apparent distress at this time. Patient and/or em family updated on plan of care and expected duration. Pain level reassessed. Patient is alert, oriented x 3, equal unlabored respirations, skin warm/dry/pink. rates pain 8/10. 12:23 Reassessment: Patient appears in no apparent distress at this time. Patient and/or em family updated on plan of care and expected duration. Pain level reassessed. Patient is alert, oriented x 3, equal unlabored respirations, skin warm/dry/pink. Vital Signs: 10:34 BP 123 / 65; Pulse 89; Resp 18; Temp 97.6(O); Pulse Ox 100% on R/A; Weight 63.5 kg; em Height 5 ft. 4 in. (162.56 cm); Pain 10/10; 11:36 BP 108 / 51; Pulse 84; Resp 16; Pulse Ox 100% on R/A; em 12:21 BP 126 / 71; Pulse 76; Resp 16; Pulse Ox 99% on R/A; Pain 8/10; em 10:34 Body Mass Index 24.03 (63.50 kg, 162.56 cm) em ED Course: 10:29 Patient arrived in ED. em 10:34 Arm band placed on. em 10:37 Patient has correct armband on for positive identification. Bed in low position. Call em light in reach. Side rails up X2. [employer] at bedside. 10:37 Maintain EMS IV. Dressing intact. Good blood return noted. Site clean \T\ dry. Gauge \T\ em site: 22 R hand. Patient maintains SpO2 saturation greater than 95% on room air. 10:49 Holl[facility] Holm [facility]C [facility] kb 10:49 Rusty Rey MD is Attending Physician. kb 10:50 EKG done, by ED staff, reviewed by Rusty Rey MD. 5 11:10 Initial lab(s) drawn, by la, sent to lab. Inserted saline lock: 22 gauge in right 5 antecubital area, using aseptic technique. Blood collected. 11:11 Lipase Sent. mh5 11:11 Basic Metabolic Panel Sent. 5 11:11 Amylase, Serum Sent. 5 11:11 CBC with Diff Sent. 5 11:11 Ckmb Sent. 5 11:11 LFT's Sent. 5 11:12 Magnesium Sent. 5 11:12 NT PRO-BNP Sent. 5 11:12 Troponin (emerg Dept Use Only) Sent. 5 11:19 Constantino Back LVN is Primary Nurse. em 11:24 Triage completed. ss 11:36 X-ray completed. Portable x-ray completed in exam room. Patient tolerated procedure ml well. 11:38 XRAY Chest (1 view) In Process Unspecified. EDMS 12:20 No provider procedures requiring assistance completed. IV discontinued, intact, em bleeding controlled, No redness/swelling at site. Pressure dressing applied. Administered Medications: No medications were administered Outcome: 12:14 Discharge ordered by MD. kb 12:20 Discharged to Law Enforcement em 12:20 Condition: good 12:20 Discharge instructions given to patient, police, Instructed on discharge instructions, follow up and referral plans. Demonstrated understanding of instructions, follow-up care. 12:24 Patient left the ED. 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
--- NOTE | 2018-04-15 12:14 | EDPHYS ---
Physician Documentation [facility] Name: Lorene Singer Age: 37 yrs Sex: Female : 1980 Arrival Date: 04/15/2018 Time: 10:29 Bed 20 Private MD: ED Physician Rusty Rey HPI: 04/15 12:10 This 37 yrs old Female presents to ER via EMS with complaints of chest kb pain/abd pain. 12:10 The patient or guardian reports chest pain that is located primarily in the anterior kb chest wall, left. The pain does not radiate. Associated signs and symptoms: Pertinent positives: abdominal pain, Pertinent negatives: cough, diaphoresis, dizziness, headache, lower extremity pain, lower extremity swelling, lightheadedness, nausea, near syncope, palpitations, recent travel, shortness of breath, syncope, vomiting. The chest pain is described as aching. Duration: The patient or guardian reports a single episode. Modifying factors: The symptoms are alleviated by nothing. the symptoms are aggravated by nothing. Severity of pain: At its worst the pain was mild moderate in the emergency department the pain is unchanged. The patient has experienced similar episodes in the past. The patient has been recently seen at the [facility] Emergency Department, yesterday, for similar complaints labs were performed, X-rays were performed. RN SECURITY: 10:34 LMP 04/14/2018 em Historical: - Allergies: 10:34 Morphine; em - Home Meds: 10:34 Metoprolol Tartrate Oral [Active]; em - PMHx: 10:34 Depression; ADD/ADHD; Anxiety; Atrial Fib; em - PSHx: 10:34 None; em - Immunization history:: Adult Immunizations up to date. - Social history:: Smoking status: Patient uses tobacco products, smokes one-half pack cigarettes per day. - Ebola Screening: : Patient negative for fever greater than or equal to 101.5 degrees Fahrenheit, and additional compatible Ebola Virus Disease symptoms Patient denies exposure to infectious person Patient denies travel to an Ebola-affected area in the 21 days before illness onset No symptoms or risks identified at this time. ROS: 12:10 Constitutional: Negative for fever, chills, and weight loss, ENT: Negative for injury, kb pain, and discharge, Neck: Negative for injury, pain, and swelling, Respiratory: Negative for shortness of breath, cough, wheezing, and pleuritic chest pain, Back: Negative for injury and pain, : Negative for injury, bleeding, discharge, and swelling, MS/Extremity: Negative for injury and deformity, Skin: Negative for injury, rash, and discoloration, Neuro: Negative for headache, weakness, numbness, tingling, and seizure. 12:10 Abdomen/GI: Positive for abdominal pain, Negative for nausea, vomiting, and diarrhea, constipation, abdominal cramps, abdominal distension, anorexia. 12:10 Cardiovascular: Positive for chest pain, Negative for edema, orthopnea, palpitations, kb paroxysmal nocturnal dyspnea. Exam: 12:13 Constitutional: This is a well developed, well nourished patient who is awake, alert, kb and in no acute distress. Head/Face: Normocephalic, atraumatic. Chest/axilla: Normal chest wall appearance and motion. Nontender with no deformity. No lesions are appreciated. Cardiovascular: Regular rate and rhythm with a normal S1 and S2. No gallops, murmurs, or rubs. Normal PMI, no JVD. No pulse deficits. Respiratory: Lungs have equal breath sounds bilaterally, clear to auscultation and percussion. No rales, rhonchi or wheezes noted. No increased work of breathing, no retractions or nasal flaring. Back: No spinal tenderness. No costovertebral tenderness. Full range of motion. Skin: Warm, dry with normal turgor. Normal color with no rashes, no lesions, and no evidence of cellulitis. MS/ Extremity: Pulses equal, no cyanosis. Neurovascular intact. Full, normal range of motion. Neuro: Awake and alert, GCS 15, oriented to person, place, time, and situation. Cranial nerves II-XII grossly intact. Motor strength 5/5 in all extremities. Sensory grossly intact. Cerebellar exam normal. Normal gait. 12:13 Abdomen/GI: Inspection: abdomen appears normal, Bowel sounds: normal, in all quadrants, Palpation: soft, in all quadrants, mild abdominal tenderness, in all quadrants. Vital Signs: 10:34 BP 123 / 65; Pulse 89; Resp 18; Temp 97.6(O); Pulse Ox 100% on R/A; Weight 63.5 kg; em Height 5 ft. 4 in. (162.56 cm); Pain 10/10; 11:36 BP 108 / 51; Pulse 84; Resp 16; Pulse Ox 100% on R/A; em 12:21 BP 126 / 71; Pulse 76; Resp 16; Pulse Ox 99% on R/A; Pain 8/10; em 10:34 Body Mass Index 24.03 (63.50 kg, 162.56 cm) em MDM: 10:51 Patient medically screened. kb 12:13 Data reviewed: vital signs, nurses notes. Data interpreted: Pulse oximetry: on room air kb is 100 %. Interpretation: normal. Counseling: I had a detailed discussion with the patient and/or guardian regarding: the historical points, exam findings, and any diagnostic results supporting the discharge/admit diagnosis, lab results, radiology results, the need for outpatient follow up, a campaign management senior manager, a family practitioner, to return to the emergency department if symptoms worsen or persist or if there are any questions or concerns that arise at home. 04/15 10:55 Order name: Basic Metabolic Panel; Complete Time: 12:05 kb 04/15 10:55 Order name: CBC with Diff; Complete Time: 11:32 kb 04/15 10:55 Order name: Ckmb; Complete Time: 12:05 kb 04/15 10:55 Order name: LFT's; Complete Time: 12:05 kb 04/15 10:55 Order name: Magnesium; Complete Time: 12:05 kb 04/15 10:55 Order name: NT PRO-BNP; Complete Time: 12:05 kb 04/15 10:55 Order name: Troponin (emerg Dept Use Only); Complete Time: 12:05 kb 04/15 10:55 Order name: XRAY Chest (1 view); Complete Time: 12:05 kb 04/15 10:55 Order name: EKG; Complete Time: 10:56 kb 04/15 10:55 Order name: Cardiac monitoring; Complete Time: 12:19 kb 04/15 10:55 Order name: EKG - Nurse/Tech; Complete Time: 11:12 kb 04/15 10:55 Order name: IV Saline Lock; Complete Time: 12:19 kb 04/15 10:55 Order name: Amylase, Serum; Complete Time: 12:05 kb 04/15 10:55 Order name: Lipase; Complete Time: 12:05 kb 04/15 10:55 Order name: Labs collected and sent; Complete Time: 11:12 kb 04/15 10:55 Order name: O2 Per Protocol; Complete Time: 12:19 kb 04/15 10:55 Order name: O2 Sat Monitoring; Complete Time: 12:19 kb Administered Medications: No medications were administered Disposition: 14:20 Co-signature as Attending Physician, Rusty Rey MD I agree with the assessment and kdr plan of care. Disposition: 04/15/18 12:14 Discharged to Law Enforcement. Impression: Chest pain, unspecified, Generalized abdominal pain. - Condition is Stable. - Discharge Instructions: Abdominal Pain, Adult, [id number], Nonspecific Chest Pain, Wlet-qg-Riig. - Medication Reconciliation Form, Thank You Letter, Antibiotic Education, Prescription Opioid Use form. - Follow up: Private Physician; When: 2 - 3 days; Reason: Recheck today's complaints, Continuance of care, Re-evaluation by your physician. Follow up: Emergency Department; When: As needed; Reason: Worsening of condition. Signatures: Dispatcher [employer] EDHollie Fernandez, ADILENE TRAN-Rusty Horta MD MD kdr Munoz, Edgar, HALF BACKER HALF BACKER em Corrections: (The following items were deleted from the chart) 12:13 12:10 Constitutional: Negative for fever, chills, and weight loss, ENT: Negative for kb injury, pain, and discharge, Neck: Negative for injury, pain, and swelling, Cardiovascular: Negative for chest pain, palpitations, and edema, Respiratory: Negative for shortness of breath, cough, wheezing, and pleuritic chest pain, Back: Negative for injury and pain, : Negative for injury, bleeding, discharge, and swelling, MS/Extremity: Negative for injury and deformity, Skin: Negative for injury, rash, and discoloration, Neuro: Negative for headache, weakness, numbness, tingling, and seizure, kb 12:19 10:55 Urine Dipstick-Ancillary ordered. kb em 12:24 12:14 04/15/2018 12:14 Discharged to Law Enforcement. Impression: Chest pain, em unspecified; Generalized abdominal pain. Condition is Stable. Forms are Medication Reconciliation Form, Thank You Letter, Antibiotic Education, Prescription Opioid Use. Follow up: Private Physician; When: 2 - 3 days; Reason: Recheck today's complaints, Continuance of care, Re-evaluation by your physician. Follow up: Emergency Department; When: As needed; Reason: Worsening of condition. kb
[2018-04-15 12:29] VITALS: TEMP 97.6
[2018-04-15 12:31] VITALS: BP 126/71; O2SAT 99
--- NOTE | 2018-04-16 07:56 | EKG ---
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
== END 2018-04-15 12:24 ==
LOC: ER 10:24
DX: R10.84 Generalized abdominal pain (principal); F17.210 Nicotine dependence, cigarettes, uncomplicated; F32.9 Major depressive disorder, single episode, unspecified; F90.9 Attention-deficit hyperactivity disorder, unspecified type; Z88.5 Allergy status to narcotic agent
CPT/HCPCS: 36415; 71045; 80048; 80076; 82150; 82553; 83690; 83735; 83880; 84484; 85025; 93005; 99285

== ENCOUNTER 2018-06-03 18:59 | Emergency (ER) | payer SELFPAY ==
--- OUTSIDE RECORDS SUMMARY | 2018-06-03 19:01 | XMS REPORT ---
:1980 [facility] Address [address] [place] [id number] Care Team Providers Name Role Phone UNKNOWN, [...] (test code=TSH) 2.42 mIU/mL 0.270-4.200 BHCG, Serum, [id number] 07:29:00 Test Item Value Reference Range Comments B hCG, Quant (test <1 mIU/mL Weeks of Gestation Ranges code=BHCGQT) (mIU/mL)3 weeks 5.40 - 72.04 weeks 10.2 - 7085 weeks 217 - 58382 weeks 152 - 579433 weeks 4059 - 6291895 weeks 09329 - 7711233 weeks 28309 - [id number] weeks 28848 - [id number] weeks 84896 - 40971650 weeks 35419 - 4402424 weeks 95686 - 6198291 weeks 1604 - 7191154 weeks 7640 - 6859525 weeks 3475 - 88004 Lipid [id number] 07:19:00 Test Item Value Reference Range Comments Cholesterol (test 132 mg/dL 0-200 code=CHOL) Triglycerides (test 122 mg/dL 9-200 code=TRIG) HDL (test code=HDL) 21 mg/dL 50-60 Chol/HDL (test 6.3 Ratio 0.0-4.4 code=CHOLPHDL) LDL, Calculated (test 87 0-130 (NOTE)RISK OF HEART code=LDLC) DISEASEPublished by [place]ralt[place] Heart AssociationAnalyte Optimal Boderline Increased RiskCHOL <200 200-239 >240TRIG <150 150-199 >200HDL Male: >60 <40HDL Female: >60 <50LDL <100 130-159 >160LDL NEAR OPTIMAL IS 100-129 VLDL (test code=VLDL) 24 mg/dL 5-40 LDL/HDL (test code=LDLPHDL) 4 [id number] 04:24:00 Test Item Value Reference Range Comments [...] code=PROPOX) THC (test code=THC) POSITIVE Negative Urinalysis [id number] 03:47:00 Test Item Value Reference Range Comments Color (test code=COLOR) [place] Yellow,Straw,Pl yellow The value [place] originally released by [employer] on 10/11/2017 03:42 waschanged to [place] by [employer] on 10/11/2017 03:47 Clarity (test code=CLAR) Sl Cloudy Clear The value Clear originally released by [employer] on 10/11/2017 03:42 waschanged to Sl Cloudy by [employer] on 10/11/2017 03:47 Specific [place] (test 1.006 1.001-1.035 code=SPGR) pH (test code=PH) [...] Bacteria (test code=BACT) Few /HPF Comprehensive Metabolic [id number] 01:00:00 Test Item Value Reference Range Comments [...] race is not provided, and the patient isAfrican-Gibralt[place], multiply by 1.212. If sex is not provided, and thepatient is female, multiply by 0.742. Results for patients <18 years ofage have not been validated by the MDRD study and should be interpretedwith caution.eGFR Result Interpretation:eGFR > or=60 is in the Normal RangeeGFR < 60 may mean kidney diseaseeGFR < 15 may mean kidney failureRanges recommended by the National Kidney Foundation,http://nkdep.nih .gov Alcohol/Ethanol, [id number] 01:00:00 Test Item Value Reference Range Comments Alcohol, Ethyl (test <0.01 g/dL 0.00-0.01 Intoxicated 0.080 g/dL or code=ETOH) more CBC with [id number] 00:45:00 Test Item Value Reference Range Comments [...] Lymph Abs (test code=ALYMPH) 3.8 K/cumm 0.5-4.6 Whitman Abs (test code=AMONO) 0.5 K/cumm 0.0-1.2 Eos Abs (test code=AEOS) 1.24 K/cumm 0.00-0.74 Baso Abs (test code=ABASO) 0.1 K/cumm 0.00-0.21
[2018-06-03] MEDS ORDERED: clonazePAM 0.5 MG TAB ONE (20:10)
[2018-06-03] MEDS ORDERED: LORAZEPAM 1 MG TABLET ONE (20:14)
--- NOTE | 2018-06-03 20:52 | EDPHYS ---
Physician Documentation [facility] Name: Lorene Singer Age: 37 yrs Sex: Female : 1980 Arrival Date: 06/03/2018 Time: 19:03 Bed 19 Private MD: ED Physician Lon Koch HPI: 06/03 19:51 This 37 yrs old Female presents to ER via Ambulatory with complaints of Psych jr8 Problem. 19:51 The patient presents to the emergency department with anxiety, depression. Onset: The jr8 symptoms/episode began/occurred gradually, 1 week(s) ago. Past psychiatric history: Prior diagnosis: depression, Psychiatric medications include: Effexor, Risperidone, hydroxizine . Associated signs and symptoms: The patient has no apparent associated signs or symptoms. Severity of symptoms: At their worst the symptoms were moderate in the emergency department the symptoms are unchanged. The patient has experienced a previous episode. The patient has not recently seen a physician. Stated that while she was in intermediate was on her meds. Now has been out for over a week and starting to feel depressed and very anxious along with having racing thoughts. Stated that she has been off of her meds for one week now. Came for help because she doesn't want to use illegal drugs and alcohol to help with the coping. 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 - Social history:: Smoking status: Patient uses tobacco products, smokes one pack cigarettes per day. - Ebola Screening: : Patient denies travel to an Ebola-affected area in the 21 days before illness onset. ROS: 19:51 Eyes: Negative for injury, pain, redness, and discharge, ENT: Negative for injury, jr8 pain, and discharge, Neck: Negative for injury, pain, and swelling, Cardiovascular: Negative for chest pain, palpitations, and edema, Respiratory: Negative for shortness of breath, cough, wheezing, and pleuritic chest pain, Abdomen/GI: Negative for abdominal pain, nausea, vomiting, diarrhea, and constipation, Back: Negative for injury and pain, MS/Extremity: Negative for injury and deformity, Skin: Negative for injury, rash, and discoloration, Neuro: Negative for headache, weakness, numbness, tingling, and seizure. 19:51 Psych: Positive for anxiety, depression, Negative for visual hallucinations, homicidal ideation, suicide gesture, suicidal ideation. Exam: 19:51 Eyes: Pupils equal round and reactive to light, extra-ocular motions intact. Lids and jr8 lashes normal. Conjunctiva and sclera are non-icteric and not injected. Cornea within normal limits. Periorbital areas with no swelling, redness, or edema. ENT: Nares patent. No nasal discharge, no septal abnormalities noted. Tympanic membranes are normal and external auditory canals are clear. Oropharynx with no redness, swelling, or masses, exudates, or evidence of obstruction, uvula midline. Mucous membranes moist. Neck: Trachea midline, no thyromegaly or masses palpated, and no cervical lymphadenopathy. Supple, full range of motion without nuchal rigidity, or vertebral point tenderness. No Meningismus. Cardiovascular: Regular rate and rhythm with a normal S1 and S2. No gallops, murmurs, or rubs. Normal PMI, no JVD. No pulse deficits. Respiratory: Lungs have equal breath sounds bilaterally, clear to auscultation and percussion. No rales, rhonchi or wheezes noted. No increased work of breathing, no retractions or nasal flaring. Abdomen/GI: Soft, non-tender, with normal bowel sounds. No distension or tympany. No guarding or rebound. No evidence of tenderness throughout. Back: No spinal tenderness. No costovertebral tenderness. Full range of motion. Skin: Warm, dry with normal turgor. Normal color with no rashes, no lesions, and no evidence of cellulitis. MS/ Extremity: Pulses equal, no cyanosis. Neurovascular intact. Full, normal range of motion. Neuro: Awake and alert, GCS 15, oriented to person, place, time, and situation. Cranial nerves II-XII grossly intact. Motor strength 5/5 in all extremities. Sensory grossly intact. Cerebellar exam normal. Normal gait. 19:51 Psych: Behavior/mood is anxious, depressed, Affect is calm, Oriented to person, place, time, Patient has no thoughts/intents to harm self or others. Judgement / Insight is normal. Memory is normal. Delusions/hallucinations are not present. Vital Signs: 19:07 BP 141 / 88; Pulse 95; Resp 18; Temp 97.8; Pulse Ox 100% on R/A; Weight 65.77 kg (R); aj1 Height 5 ft. 4 in. (162.56 cm) (R); Pain 0/10; 19:07 Body Mass Index 24.89 (65.77 kg, 162.56 cm) aj1 MDM: 19:09 Patient medically screened. jr8 20:47 Data reviewed: vital signs, nurses notes, and as a result, I will discharge patient. jr8 Data interpreted: Pulse oximetry: on room air is 100 %. Interpretation: normal. Counseling: I had a detailed discussion with the patient and/or guardian regarding: the historical points, exam findings, and any diagnostic results supporting the discharge/admit diagnosis, the need for outpatient follow up, a psychiatrist, to return to the emergency department if symptoms worsen or persist or if there are any questions or concerns that arise at home. Response to treatment: the patient's symptoms have markedly improved after treatment. ED course: Patient feeling much better after being medicated. Will give refill on her medication until her [facility] appointment on the 29 of June. Patient good with this plan and will follow up. If worse would come back . Administered Medications: 20:06 Not Given (Physician Discretion): KLONopin 1 mg PO once jr8 20:15 Drug: Ativan 1 mg Route: PO; ao 21:00 Follow up: Response: No adverse reaction ao Disposition: 06/04 04:31 Co-signature as Attending Physician, Lon Koch MD. rn Disposition: 06/03/18 20:51 Discharged to Home. Impression: Anxiety disorder, unspecified, Major depressive disorder, recurrent. - Condition is Stable. - Discharge Instructions: Panic Attacks, Helping Someone Who is Suicidal, Generalized Anxiety Disorder, Major Depressive Disorder. - Prescriptions for Effexor XR 75 mg Oral capsule,extended release 24hr - take 1 capsule by ORAL route once daily with food; 30 capsule. Klonopin 0.5 mg Oral Tablet - take 1 tablet by ORAL route every 12 hours As needed; 20 tablet. Risperdal 2 mg Oral tablet - take 1 tablet by ORAL route once daily; 30 tablet. - Medication Reconciliation Form, Thank You Letter, Antibiotic Education, Prescription Opioid Use form. - Follow up: Private Physician; When: 1 week; Reason: Recheck today's complaints, Continuance of care, Re-evaluation by your physician. - Problem is new. - Symptoms have improved. Signatures: Juani Lopez RN RN aj1 Lon Koch MD MD rn Roszak, Josh, PA PA jr8 Siddhartha Abebe RN RN ao Corrections: (The following items were deleted from the chart) 06/03 21:10 20:51 06/03/2018 20:51 Discharged to Home. Impression: Anxiety disorder, unspecified; ao Major depressive disorder, recurrent. Condition is Stable. Forms are Medication Reconciliation Form, Thank You Letter, Antibiotic Education, Prescription Opioid Use. Follow up: Private Physician; When: 1 week; Reason: Recheck today's complaints, Continuance of care, Re-evaluation by your physician. Problem is new. Symptoms have improved. jr8
--- NOTE | 2018-06-03 20:52 | ER ---
Nurse's Notes [facility] Name: Lorene Singer Age: 37 yrs Sex: Female : 1980 Arrival Date: 06/03/2018 Time: 19:03 Bed 19 Private MD: Diagnosis: Anxiety disorder, unspecified;Major depressive disorder, recurrent Presentation: 06/03 19:04 Presenting complaint: Patient states: "I'm suffering from depression and anxiety. I'm aj1 off my meds, and I don't want to kill myself, but I do want to self medicate, and I wanted to get help before I do that" Patient clarifies that she would go out and drink or do street drugs to feel better if she can't get her medications. States she usually take Effexor, hydroxyzine, risperidone, gabapentin, and trazodone; but she has been out of these medications for a week. Transition of care: patient was not received from another setting of care. Onset of symptoms was June 03, 2018. Risk Assessment: Do you want to hurt yourself or someone else? Patient reports no desire to harm self or others. Initial Sepsis Screen: Does the patient meet any 2 criteria? No. Patient's initial sepsis screen is negative. Does the patient have a suspected source of infection? No. Patient's initial sepsis screen is negative. Care prior to arrival: None. 19:04 Method Of Arrival: Ambulatory aj1 19:04 Acuity: JAMSHID 3 aj1 Triage Assessment: 19:07 General: Appears in no apparent distress. comfortable, Behavior is calm, cooperative, aj1 appropriate for age. Pain: Denies pain. Neuro: Level of Consciousness is awake, alert, obeys commands. Cardiovascular: Patient's skin is warm and dry. Respiratory: Airway is patent Respiratory effort is even, unlabored, Respiratory pattern is regular, symmetrical. 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 - Social history:: Smoking status: Patient uses tobacco products, smokes one pack cigarettes per day. - Ebola Screening: : Patient denies travel to an Ebola-affected area in the 21 days before illness onset. Screenin:07 Abuse screen: Denies threats or abuse. Denies injuries from another. Nutritional ao screening: No deficits noted. Tuberculosis screening: No symptoms or risk factors identified. Fall Risk None identified. Assessment: 19:23 General: Appears in no apparent distress. comfortable, Behavior is calm, cooperative. ao Pain: Denies pain. Neuro: Level of Consciousness is awake, alert, obeys commands, Oriented to person, place, time, situation, Appropriate for age Moves all extremities. Full function Speech is normal, Facial symmetry appears normal. Cardiovascular: Capillary refill < 3 seconds Patient's skin is warm and dry. Respiratory: Airway is patent Respiratory effort is even, unlabored, Respiratory pattern is regular, symmetrical. GI: Abdomen is non-distended. : No signs and/or symptoms were reported regarding the genitourinary system. EENT: No signs and/or symptoms were reported regarding the EENT system. Derm: No signs and/or symptoms reported regarding the dermatologic system. Musculoskeletal: No signs and/or symptoms reported regarding the musculoskeletal system. Psych: 21:08 Subjective: Patient's mood is sad. Objective: Patient is cooperative. Interventions: ao Removed personal items and placed in bag. Patient placed in hospital gown. Searched person for dangerous items. Suicide Risk Assessment: Sad Person Scale: Sex of patient: Female: Score 0 points. Age of patient: Score 0 point if patient falls outside of specified age parameters. Depression: Score 1 point if signs of depression are present. Safety Checks: Pt denies suicidal. Pt denies substance abuse. Commitment: Patient will be a voluntary commitment. Vital Signs: 19:07 BP 141 / 88; Pulse 95; Resp 18; Temp 97.8; Pulse Ox 100% on R/A; Weight 65.77 kg (R); aj1 Height 5 ft. 4 in. (162.56 cm) (R); Pain 0/10; 19:07 Body Mass Index 24.89 (65.77 kg, 162.56 cm) aj1 ED Course: 19:03 Patient arrived in ED. es 19:06 Triage completed. aj1 19:07 Arm band placed on Patient placed in an exam room. aj1 19:09 Jacoby Valentine PA is PHCP. jr8 19:09 Lon Koch MD is Attending Physician. jr8 19:13 Siddhartha Abebe, RN is Primary Nurse. ao 21:07 No provider procedures requiring assistance completed. Patient did not have IV access ao during this emergency room visit. 21:10 Patient has correct armband on for positive identification. Pulse ox on. NIBP on. ao Administered Medications: 20:06 Not Given (Physician Discretion): KLONopin 1 mg PO once jr8 20:15 Drug: Ativan 1 mg Route: PO; ao 21:00 Follow up: Response: No adverse reaction ao Outcome: 20:51 Discharge ordered by . jr8 21:09 Discharged to home ambulatory. ao 21:09 Condition: stable 21:09 Discharge instructions given to patient, Instructed on discharge instructions, follow up and referral plans. Demonstrated understanding of instructions, follow-up care, medications, Prescriptions given X 3. 21:10 Patient left the ED. ao Signatures: Juani Lopez RN RN aj1 Deidra Correa Josh, PA PA jr8 Siddhartha Abebe RN RN ao
[2018-06-03 22:54] VITALS: BP 141/88; TEMP 97.8; O2SAT 100
== END 2018-06-03 21:10 | disposition home or self-care (01) ==
LOC: ER 18:59
DX: F33.9 Major depressive disorder, recurrent, unspecified (principal); F17.210 Nicotine dependence, cigarettes, uncomplicated; Z88.6 Allergy status to analgesic agent
CPT/HCPCS: 99284